=== PATIENT | female | born 1930 | race Caucasian/White ===

== ENCOUNTER → 2016-04-02 | Outpatient (CLI) | payer MEDICARE ==
[~2016-04-02] MED LIST: ACET65TA; ALBU17IN2 INH; ASPI1TAB PO; ATEN25TA; ATEN25TA PO; ATOR40TA PO; AZUL500T3; BABY81CH; CALC600T7 PO; EYECAP PO; FLAG500T; FURO20TA2 PO; HYDR200T3 PO; LABE10TAB PO; LASI40TA; LEVO125T6; LEVO150T42 PO; LISI10TA4; MAGN500T2; MILKSUS; NEXI40CA PO; NORV5TAB; NYSTATIN ORAL; POTA10TA16 PO; PRAM0.123 PO; PRED10PA PO; PRED10TA2; PRED20TA; PRED5TA PO; ROBISYP PO; SENN-23 PO; TRAZ50TA; TYLE325T5 PO; VITA100066 PO; VITMTA PO; ZITH500T PO
[2016-04-02 20:27] LABS: CREATININE FOR GFR 1.21 MG/DL (0.55-1.02); GLOMERULAR FILTRATION RATE 44.7 (>32)
== END ==
LOC: M WUC 15:45
PROVIDERS: ATTEND Otolaryngology
DX: R22.1 Localized swelling, mass and lump, neck (principal)

== ENCOUNTER → 2016-04-20 | Outpatient (CLI) | payer MEDICARE ==
--- NOTE | 2016-04-20 13:24 | REP ---
Clinical: Adhesive capsulitis. Technique: Internal rotation, external rotation, and Y view. Findings: There is mild chronic appearing acromioclavicular joint subluxation along with elevation of the humeral head and decrease subacromial space. The humeral head appears to have migrated superomedially causing remodelling of the underlying glenoid. No acute fracture identified. Impression: Arthritic degenerative changes as described above. Signed by Deep Gambino MD 04/20/2016 01:15 P
== END ==
LOC: M WUC 12:52
PROVIDERS: ATTEND Family Medicine
DX: M75.01 Adhesive capsulitis of right shoulder (principal)

== ENCOUNTER → 2016-05-04 | Outpatient (CLI) | payer MEDICARE ==
[2016-05-04 13:50] LABS: ALBUMIN 3.7 GM/DL (3.2-5.2); ALBUMIN/GLOBULIN RATIO 1.37 (1.00-1.93); ALKALINE PHOSPHATASE 75 U/L (45-117); ALT/SGPT 15 U/L (12-78); ANION GAP 12 MEQ/L (8-16); AST/SGOT 18 U/L (15-37); BILIRUBIN,TOTAL 0.4 MG/DL (0.2-1.0); BLOOD UREA NITROGEN 42 MG/DL (7-18); CALCIUM LEVEL 9.2 MG/DL (8.8-10.2); CARBON DIOXIDE LEVEL 28 MEQ/L (21-32); CHLORIDE LEVEL 102 MEQ/L (98-107); CREATININE FOR GFR 1.75 MG/DL (0.55-1.02); GLOMERULAR FILTRATION RATE 29.2 (>32); GLUCOSE, FASTING 148 MG/DL (83-110); POTASSIUM SERUM 4.2 MEQ/L (3.5-5.1); SODIUM LEVEL 142 MEQ/L (136-145); TOTAL PROTEIN 6.4 GM/DL (6.4-8.2)
[2016-05-04 13:54] LABS: MEAN CORPUSCULAR HEMOGLOBIN 31.5 pg (27.0-33.0); MEAN CORPUSCULAR HGB CONC 31.6 g/dl (32.0-36.5); MEAN CORPUSCULAR VOLUME 99.5 fl (80.0-96.0); RED CELL DISTRIBUTION WIDTH 14.8 % (11.5-14.5); WHITE BLOOD COUNT 6.4 K/mm3 (4.0-10.0)
[2016-05-04 13:58] LABS: BASOPHILS 2 % (0-4); EOSINOPHILS 3 % (0-5); POIKILOCYTOSIS 1+
[2016-05-04 14:00] LABS: MICROSCOPIC INDICATED? MAN YES (NO)
[2016-05-04 14:07] LABS: BACTERIA, URINE SMALL AMOUNT; SQUAMOUS EPITHELIAL CELL URINE SMALL AMOUNT /hpf (SMALL AMT); WBC, URINE 30-40 /hpf (0-3)
[2016-05-04 14:08] LABS: MICROSCOPIC EXAM PERFORMED
[2016-05-04 14:09] LABS: TRANSITIONAL EPI CELLS, URINE SMALL AMOUNT /hpf
[2016-05-04 16:31] LABS: VITAMIN B12 LEVEL 575 PG/ML (247-911)
[2016-05-05 11:06] LABS: PRETREATED FOLATE FOR RBCFOL > 24.0 NG/ML
[2016-05-06 00:06] LABS: FREE KAPPA LIGHT CHAINS SERUM 43.72 mg/L (3.30-19.40); FREE LAMBDA LIGHT CHAINS SERUM 38.51 mg/L (5.71-26.30); KAPPA/LAMBDA RATIO SERUM 1.14 (0.26-1.65)
[2016-05-07 13:07] LABS: ALBUMIN % 57.6 % (55.8-66.1); GAMMA GLOBULIN % 10.3 % (11.1-18.8)
[2016-05-07 13:08] LABS: ALBUMIN 3.69 GM/DL (3.29-5.55)
== END ==
LOC: M WUC 10:48
PROVIDERS: ATTEND Family Medicine
DX: I10 Essential (primary) hypertension (principal); M32.9 Systemic lupus erythematosus, unspecified; D47.2 Monoclonal gammopathy; E03.9 Hypothyroidism, unspecified; N18.3 Chronic kidney disease, stage 3 (moderate); M10.9 Gout, unspecified

== ENCOUNTER → 2016-05-11 | Outpatient (CLI) | payer MEDICARE ==
[2016-05-11 12:02] LABS: MEAN CORPUSCULAR HEMOGLOBIN 31.5 pg (27.0-33.0); MEAN CORPUSCULAR HGB CONC 32.2 g/dl (32.0-36.5); MEAN CORPUSCULAR VOLUME 97.9 fl (80.0-96.0); RED CELL DISTRIBUTION WIDTH 14.9 % (11.5-14.5); WHITE BLOOD COUNT 6.2 K/mm3 (4.0-10.0)
[2016-05-11 12:13] LABS: VITAMIN B12 LEVEL 520 PG/ML (247-911)
[2016-05-11 12:30] LABS: EOSINOPHILS 2 % (0-5)
[2016-05-11 12:37] LABS: ALBUMIN 3.6 GM/DL (3.2-5.2); ALBUMIN/GLOBULIN RATIO 1.13 (1.00-1.93); ALKALINE PHOSPHATASE 83 U/L (45-117); ALT/SGPT 15 U/L (12-78); ANION GAP 12 MEQ/L (8-16); AST/SGOT 19 U/L (15-37); BILIRUBIN,TOTAL 0.4 MG/DL (0.2-1.0); BLOOD UREA NITROGEN 34 MG/DL (7-18); CALCIUM LEVEL 9.6 MG/DL (8.8-10.2); CARBON DIOXIDE LEVEL 27 MEQ/L (21-32); CHLORIDE LEVEL 103 MEQ/L (98-107); CREATININE FOR GFR 1.37 MG/DL (0.55-1.02); FREE T4 1.37 NG/DL (0.76-1.46); GLOMERULAR FILTRATION RATE 38.7 (>32); GLUCOSE, FASTING 100 MG/DL (83-110); POTASSIUM SERUM 3.9 MEQ/L (3.5-5.1); SODIUM LEVEL 142 MEQ/L (136-145); TOTAL PROTEIN 6.8 GM/DL (6.4-8.2); URIC ACID 4.6 MG/DL (2.6-6.0)
[2016-05-12 11:36] LABS: PRETREATED FOLATE FOR RBCFOL > 24.0 NG/ML
[2016-05-13 07:37] LABS: ALBUMIN 3.89 GM/DL (3.29-5.55); ALBUMIN % 57.2 % (55.8-66.1); GAMMA GLOBULIN % 10.2 % (11.1-18.8)
[2016-05-14 00:09] LABS: FREE KAPPA LIGHT CHAINS SERUM 35.32 mg/L (3.30-19.40); FREE LAMBDA LIGHT CHAINS SERUM 36.61 mg/L (5.71-26.30); KAPPA/LAMBDA RATIO SERUM 0.96 (0.26-1.65)
== END ==
LOC: M WUC 09:44
PROVIDERS: ATTEND Family Medicine
DX: I10 Essential (primary) hypertension (principal); M32.9 Systemic lupus erythematosus, unspecified; D47.2 Monoclonal gammopathy

== ENCOUNTER → 2016-05-25 | Outpatient (CLI) | payer MEDICARE | LOC: M WUC 11:37 | PROVIDERS: ATTEND Physician Assistant Medical | DX: M81.0 Age-related osteoporosis without current pathological fracture (principal) ==

== ENCOUNTER → 2016-06-18 | Outpatient (REF) | payer MEDICARE ==
[2016-06-18 19:40] LABS: FREE T4 1.43 NG/DL (0.76-1.46)
== END ==
LOC: M LAB REF 16:30
PROVIDERS: ATTEND Internal Medicine Medical Oncology
DX: C64.1 Malignant neoplasm of right kidney, except renal pelvis (principal); E03.9 Hypothyroidism, unspecified

== ENCOUNTER → 2016-07-08 | Outpatient (REF) | payer MEDICARE | LOC: M LAB REF 16:45 | PROVIDERS: ATTEND Obstetrics & Gynecology | DX: R39.89 Other symptoms and signs involving the genitourinary system (principal) ==

== ENCOUNTER → 2016-07-21 | Outpatient (REF) | payer MEDICARE ==
[2016-07-21 19:08] LABS: FREE T4 1.41 NG/DL (0.76-1.46)
== END ==
LOC: M LAB REF 17:11
PROVIDERS: ATTEND Internal Medicine Medical Oncology
DX: C64.9 Malignant neoplasm of unspecified kidney, except renal pelvis (principal); Z79.899 Other long term (current) drug therapy

== ENCOUNTER 2016-08-16 10:13 | Inpatient (IN) | payer MEDICARE ==
[~2016-08-16] VITALS: Ht 167.6 cm; Wt 69.4 kg
[2016-08-16] MEDS ORDERED: LEVO750T33 PO (11:24)
[2016-08-16] MEDS ORDERED: ALBUTEROL SULFATE 2.5 MG/0.5 ML INH NEB SOLN INH ONE (11:30)
[2016-08-16] MEDS ORDERED: IPRATROPIUM 0.5MG/ALBUTEROL 2.5MG INH SOL UD 3ML (DUONEB)(J7620) NEB ONE (11:30)
[2016-08-16] MEDS ORDERED: NS 500 ML IV ONE (11:30)
[2016-08-16] MEDS ORDERED: methylPREDNISolone INJ 125 MG/2 ML VIAL (J2930) IV ONE (11:30)
--- NOTE | 2016-08-16 11:48 | REP ---
Portable chest: Single view. History: Dyspnea and cough. Comparison study: October 03, 2014. Findings: The patient is rotated somewhat to the right for the current exposure. EKG electrodes are seen. The lungs however are symmetrically aerated and clear. The heart is borderline unchanged. The aorta is somewhat tortuous as before. Pulmonary vasculature is not increased. There are advanced degenerative changes in the shoulders bilaterally. Some degenerative disc disease is seen in the thoracic spine. There are clips in the left upper quadrant of the abdomen. Impression: Mildly prominent heart. Otherwise no acute disease. Signed by Jemal Jarrett MD 08/16/2016 12:53 P
[2016-08-16 11:51] LABS: ABG BASE EXCESS 3.4 (-2.0-2.0); ABG HCO3 28.6 MEQ/L (22.0-26.0); ABG PARTIAL PRESSURE CO2 46.2 mmHg (35.0-45.0); ABG PARTIAL PRESSURE O2 114.8 mmHg (75.0-100.0); ABG STANDARD HCO3 27.5 MEQ/L (22.0-26.0)
[2016-08-16 12:11] LABS: EOS # 0.2 K/mm3 (0.0-0.50); EOS % 5.2 % (0.0-3.0); LARGE UNSTAINED CELL # 0.1 K/mm3 (0.0-0.4); LARGE UNSTAINED CELL % 1.8 % (0.0-4.0); LYMPH % 23.2 % (24.0-44.0); MEAN CORPUSCULAR HEMOGLOBIN 32.6 pg (27.0-33.0); MEAN CORPUSCULAR HGB CONC 32.7 g/dl (32.0-36.5); MEAN CORPUSCULAR VOLUME 99.4 fl (80.0-96.0); MONO # 0.3 K/mm3 (0.0-0.8); MONO % 6.8 % (0.0-5.0); NEUTROPHILS # 2.6 K/mm3 (1.8-7.7); NEUTROPHILS % 62.2 % (36.0-66.0); PLATELET COUNT, AUTOMATED 215 k/mm3 (150-450); RED CELL DISTRIBUTION WIDTH 17.6 % (11.5-14.5); WHITE BLOOD COUNT 4.1 K/mm3 (4.0-10.0)
[2016-08-16 12:33] LABS: INR 1.04
[2016-08-16 12:40] LABS: ALBUMIN 3.3 GM/DL (3.2-5.2); ALBUMIN/GLOBULIN RATIO 1.14 (1.00-1.93); ALKALINE PHOSPHATASE 233 U/L (45-117); ALT/SGPT 252 U/L (12-78); ANION GAP 9 MEQ/L (8-16); AST/SGOT 250 U/L (15-37); BILIRUBIN,DIRECT 0.3 MG/DL (0.0-0.2); BILIRUBIN,TOTAL 0.8 MG/DL (0.2-1.0); BLOOD UREA NITROGEN 27 MG/DL (7-18); CALCIUM LEVEL 9.3 MG/DL (8.8-10.2); CARBON DIOXIDE LEVEL 28 MEQ/L (21-32); CHLORIDE LEVEL 105 MEQ/L (98-107); CREATININE FOR GFR 1.24 MG/DL (0.55-1.02); GLOMERULAR FILTRATION RATE 43.5 (>32); GLUCOSE, FASTING 89 MG/DL (83-110); POTASSIUM SERUM 3.8 MEQ/L (3.5-5.1); SODIUM LEVEL 142 MEQ/L (136-145); THYROXINE (T4) 13.1 UG/DL (4.5-12.0); TOTAL PROTEIN 6.2 GM/DL (6.4-8.2)
[2016-08-16] MEDS ORDERED: ISOVUE-370 76% 100ML VIAL (Q9967) As Ordered ONE (13:31)
--- NOTE | 2016-08-16 14:55 | REP ---
CT pulmonary angiogram: With IV contrast. History: Shortness of breath. Comparison studies: March 16, 2016. Contrast dose: 75 cc's of Isovue [address] technique: Helical scanning is acquired and overlapping 1.5 mm and contiguous 3 mm axial images are reformatted. In addition, a 3-D work station is deployed to generate thick slab maximum intensity projection images in sagittal and coronal imaging projections. CT pulmonary angiographic findings: There is good opacification of the pulmonary arterial tree. There is no CT evidence of pulmonary embolism. The thoracic aorta enhances homogeneously without evidence of aneurysm or dissection. There is some aortic tortuosity. No pleural or pericardial effusion is seen. Cardiomegaly is observed. Maximum intensity projection images show no evidence of vessel cutoff or filling defect in the pulmonary arterial tree to suggest an embolus. Thoracic kyphosis is somewhat exaggerated with degenerative disc changes. No bony destructive lesion is appreciated. There are several healed or healing rib fractures noted on the left. 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 No other bony destructive lesion is seen. The lung window settings show minimal subpleural fibrotic changes in the lower lobes bilaterally. No infiltrate, nodule or mass lesion is seen. No hilar or mediastinal mass or adenopathy is observed. The previously noted left lobe liver mass lesion is again seen although this appears decreased in size. Previously this measured up to 7-1/2 cm in August 2015. Currently it measures 4.6 cm in greatest diameter. There is a soft tissue mass in the left nephrectomy bed as previously noted. This appears to be essentially stable although it is incompletely seen. No other mass lesion is visible. Impression: 1. No CT evidence of pulmonary embolus. 2. Healed or healing rib fractures noted on the left. 3. Partially visualized soft tissue mass in the left nephrectomy bed appears to be stable from prior CT. 4. Low density mass lesion in the left lobe of the liver appears smaller. Signed by Jemal Jarrett MD 08/16/2016 03:14 P
[2016-08-16] MEDS ORDERED: ALBU17IN INH (16:03)
[2016-08-16] MEDS ORDERED: PRED10TA PO (16:12)
[2016-08-16] MEDS ORDERED: PRESCAP6 PO (16:12)
[2016-08-16] MEDS ORDERED: FURO20TA2 PO (16:12)
[2016-08-16] MEDS ORDERED: PRAM0.252 PO (16:12)
[2016-08-16] MEDS ORDERED: VOTRIENT PO (16:17)
[2016-08-16] MEDS ORDERED: ESTR62CR PV (16:17)
[2016-08-16] MEDS ORDERED: PRED1TABL PO (16:17)
[2016-08-16] MEDS ORDERED: MYRB25TA PO (16:23)
[2016-08-16] MEDS ORDERED: MUCI600T34 PO (16:23)
[2016-08-16] MEDS ORDERED: ALLO100T PO (16:23)
[2016-08-16] MEDS ORDERED: MIRT15TA3 PO (16:23)
[2016-08-16] MEDS ORDERED: OMEP20CA3 PO (16:23)
[2016-08-16] MEDS ORDERED: ALBUTEROL 90 MCG/ACT 8GM HFA INHALER INH PRN (18:00)
[2016-08-16] MEDS ORDERED: ACETAMINOPHEN TAB 650MG DOSE (2X325MG) PO PRN (18:00)
[2016-08-16 21:18] VITALS: BP 145/71
[2016-08-16] MEDS: ENOXAPARIN 40 MG/0.4 ML SYRINGE (J1650) SC SCH (22:20)
[2016-08-16] MEDS: SENOKOT S TAB PO SCH (22:21)
[2016-08-16] MEDS: MIRTAZAPINE 15 MG TAB PO SCH (22:21)
[2016-08-16] MEDS: guaiFENesin ER 600 MG TAB PO SCH (22:21)
[2016-08-16] MEDS: ASPIRIN 81 MG ENTERIC TAB PO SCH (22:21)
[2016-08-16] MEDS: POTASSIUM CHLORIDE 10 MEQ SR TABLET PO SCH (22:22)
[2016-08-16] MEDS: FUROSEMIDE 20 MG TAB PO SCH (22:22)
[2016-08-16] MEDS: PRAMIPEXOLE 0.25 MG TAB PO SCH (22:57)
[2016-08-16] MEDS: LABETALOL 100 MG TAB PO SCH (22:57)
[2016-08-17 06:00] VITALS: BP 131/65
[2016-08-17 06:02] LABS: BASO % 0.1 % (0.0-1.0); EOS % 0.3 % (0.0-3.0); LARGE UNSTAINED CELL % 0.6 % (0.0-4.0); LYMPH # 0.3 K/mm3 (1.5-4.5); LYMPH % 8.4 % (24.0-44.0); MEAN CORPUSCULAR HEMOGLOBIN 32.9 pg (27.0-33.0); MEAN CORPUSCULAR HGB CONC 32.7 g/dl (32.0-36.5); MEAN CORPUSCULAR VOLUME 100.7 fl (80.0-96.0); MONO # 0.2 K/mm3 (0.0-0.8); NEUTROPHILS # 3.2 K/mm3 (1.8-7.7); NEUTROPHILS % 84.7 % (36.0-66.0); PLATELET COUNT, AUTOMATED 217 k/mm3 (150-450); RED CELL DISTRIBUTION WIDTH 17.8 % (11.5-14.5); WHITE BLOOD COUNT 3.7 K/mm3 (4.0-10.0)
[2016-08-17] MEDS: LEVOTHYROXINE 150MCG TABLET (0.15MG) PO SCH (06:20)
[2016-08-17 06:37] LABS: CALCIUM LEVEL 9.2 MG/DL (8.8-10.2); CREATININE FOR GFR 1.06 MG/DL (0.55-1.02); GLOMERULAR FILTRATION RATE 52.1 (>32); POTASSIUM SERUM 4.2 MEQ/L (3.5-5.1)
--- NOTE | 2016-08-17 07:46 | HPE ---
DATE OF ADMISSION: 08/16/2016 CHIEF COMPLAINT: Shortness of breath. HISTORY OF PRESENT ILLNESS: This is a an 86-year-old woman who comes to [facility] ER today because of shortness of breath. This has been progressive over the last week or more. She was seen at urgent care four days ago and started on some Levaquin. She had a chest x-ray done and was told she had some pneumonia. She does have a mild cough, but really is more bothered by shortness of breath on exertion, extreme fatigue and a sense that she does not have the strength to stay standing when she is standing or walking. Her last evaluation in [facility] was three months ago and she really did not have any of these symptoms. However, subsequently on follow up with her oncologist, she was felt to have enlarging renal and masses and cervical nodes and was started on chemotherapy with a medication called Votrient. Unfortunately, I am not finding anything in her [facility] records that are available to us documenting this or treatment decisions involved in putting her on chemotherapy. The patient denies fevers, chills, sweats, has had some weight loss, her appetite is down. Denies any back pain or abdominal pain. She says she is raising some clear phlegm, but this is not really a new problem, this is somewhat chronic. She is not having any pains in her chest at all. PAST HISTORY: The patient had a left nephrectomy 23 years ago. She has had some sort of mass in the right kidney for a number of years, unclear whether this has actually been biopsied, but it had been stable. She has had a hysterectomy, tonsillectomy, appendectomy, thyroidectomy for goiter. She had carpal tunnel surgery just five months ago. She has been treated for chronic diastolic heart failure for the last days 7-1/2 years. She is also said to have lupus and chronically takes hydroxychloroquine and prednisone for this. She is treated for hypertension and allergic rhinitis. Hypothyroidism. Has some chronic constipation. Monoclonal gammopathy of uncertain significance. CURRENT MEDICATIONS: Her current medication regimen includes: - Votrient which appears to be dosed at 600 mg - She is on furosemide 40 mg in the morning and 20 mg in the evening - potassium chloride 10 mEq daily - hydroxychloroquine 200 mg daily - levothyroxine 150 mcg daily - labetalol 200 mg twice a day - aspirin 81 mg daily - multivitamin daily - calcium with vitamin D one a day - vitamin D 1000 units daily - docusate with senna one tablet twice a day - Since four days ago she has been on levofloxacin 750 mg daily as well as an albuterol inhaler two puffs every 4 hours p.r.n. - Several months ago she was restarted on pramipexole 0.25 mg daily at bedtime. - She is on PreserVision one capsule daily - prednisone a total of 8 mg daily. - She has conjugated estrogen cream. - omeprazole 20 mg daily - guaifenesin 600 mg twice a day - allopurinol 100 mg daily - Myrbetriq 25 mg at bedtime - mirtazapine 15 mg daily ALLERGIES: SEPTRA and CODEINE which have given her nausea and vomiting. FAMILY HISTORY: Her parents are . Her father had cancer. She has siblings who are alive. A daughter has a pacemaker. SOCIAL HISTORY: She lives in [place]. Her community physician is Dr. Brian Millan. She is nonsmoker and nondrinker. She is also seeing as consultants, Dr. Leigh Covarrubias for oncology, Dr. Turcios for urology, Dr. Nash for [facility]. REVIEW OF SYSTEMS: She denies fevers, chills or sweats. She has lost some weight. Appetite is not good. She feels lightheaded when she stands, has some mild cough, short of breath with any exertion. Denies chest pains or palpitations. Denies nausea, vomiting, abdominal pain. She tends to run between diarrhea and constipation. No blood in the stool. She does have a history of having had a vaginal discharge for which she was placed on estrogen creams recently. Denies any dysuria or hematuria. Denies any back discomfort. Denies any leg discomforts. She is not having any edema. No actual syncope. No convulsions. No history of stroke or TIA. Not having any issues with anxiety or depression. PHYSICAL EXAMINATION: On examination this is an elderly pleasant white female who does not appear in any distress at this time. She is alert, oriented, pleasant and cooperative. Her pulse is 84 and regular. Blood pressure 155/82. O2 saturation is 92-97% on 2 liters nasal oxygen. She is normocephalic. Extraocular movements are full. Pupils equal, round, regular, react to light accommodation. Facial weakness. Mouth and throat is unremarkable. Tongue is midline. Speech is clear. On the left submandibular area, there is a regular firm but not fixed area. No carotid bruits. No neck masses. No jugular venous distension or hepatojugular reflux. Lungs show the presence of what sounds like fibrotic sounding coarse rales in the lower lung whalen, more so on the left. Heart has regular rhythm without any murmur, click or gallop. Abdomen is soft, nontender, without any masses or organomegaly. Bowel sounds are active. She has a nephrectomy scar evident on the left side. She also has a thyroidectomy scar recognized at the base of her neck. There is no edema. No calf tenderness. No cyanosis or clubbing. She has excellent pedal pulses. Back is nontender. Cranial nerves III-XII within normal limits. Paralegal Supervisor are symmetric. Deep tendon reflexes are diminished. Babinski signs are negative bilaterally. Sensation seems grossly normal. She is oriented to time, place and person. She has some chronic discoloration of her legs below the knees. Labs done in the emergency department today showed a BUN of 27, creatinine 1.24, potassium 3.8, glucose 89. Liver functions are abnormal with an AST is 250, ALT of 252 and alkaline phosphatase of 233. Albumin is normal at 3.3. Troponin is normal at less than 0.02. BNP is 35.5. TSH today is 1.88, although thyroxin is slightly elevated at 13.1. Chest x-ray reported as showing some cardiomegaly. Otherwise no acute disease, certainly no masses or infiltrate. Angiography was done that showed no pulmonary embolism. Healed or healing rib fractures on the left. Partially visualized soft tissue mass in the left nephrectomy bed appearing stable. Low density mass in the left lobe of the liver appearing smaller. ASSESSMENT: 86-year-old woman with dyspnea said to have been hypoxic, is short of breath on exertion. She feels weak and unable to function with any level of exertion. She is on chemotherapy for what sounds like metastatic renal cancer, which seems to be not quite well documented in studies available to me. The patient has a history of congestive heart failure, but she has been on chronic therapy and her BNP at this time is normal. She certainly does not have a pneumonia. PLAN: My gut feeling is that the patient's chemotherapy is probably the culprit for her fatigue, dyspnea and liver function abnormalities. Will discontinue her antibiotics at this time, have her on oxygen, have run p.r.n. nebulizers, have her on most of her normal medications. She did get a dose of IV steroids in the emergency department. We will be monitoring her labs, keeping her off of her chemotherapy medication, reassessing her liver function abnormalities, getting her a dedicated abdominopelvic CT. She has a DNR mentioned, but not documented at this time, did not bring her MOLST form in. She looks quite comfortable given her current diagnostic status.
[2016-08-17 09:23] LABS: ALBUMIN 3.2 GM/DL (3.2-5.2); ALBUMIN/GLOBULIN RATIO 1.03 (1.00-1.93); BILIRUBIN,DIRECT 0.2 MG/DL (0.0-0.2); BILIRUBIN,TOTAL 0.6 MG/DL (0.2-1.0); TOTAL PROTEIN 6.3 GM/DL (6.4-8.2)
[2016-08-17] MEDS: VITAMIN D 1,000 INTERNATIONAL UNITS TABLET PO SCH (09:25)
[2016-08-17] MEDS: CALCIUM/VITAMIN D 500 MG TAB PO SCH (09:25)
[2016-08-17] MEDS: OMEPRAZOLE 20 MG CAP PO SCH (09:25)
[2016-08-17] MEDS: HYDROXYCHLOROQUINE 200 MG TAB PO SCH (09:25)
[2016-08-17] MEDS: predniSONE 5 MG TAB PO SCH (09:25)
[2016-08-17] MEDS: ALLOPURINOL 100 MG TAB PO SCH (09:25)
[2016-08-17] MEDS: SENOKOT S TAB PO SCH ×2 (09:25→20:34)
[2016-08-17] MEDS: FUROSEMIDE 40 MG TAB PO SCH (09:26)
--- NOTE | 2016-08-17 09:26 | IPNPDOC ---
Subjective Date Seen The patient was seen on 08/17/16. Subjective Chief Complaint/HPI The patient is a 86-year-old female admitted with a reason for visit of Elevated Lft's;Hypoxia;Weakness. Events since last encounter Pt this morning is feeling better. Breathing is better today. She cont to feel extremely tired. General: Reports: Fatigue, Malaise, Normal Appetite Constitutional: Denies: Chills, Fever Pulmonary: Reports: Dyspnea, Denies: Cough Cardiovascular: Denies: Chest Pain, Palpitations Gastrointestinal: Denies: Nausea, Vomiting, Diarrhea Neurological: Reports: Weakness Psych: Reports: Mood Normal Objective Physical Examination General Exam: Positive: Alert, No Acute Distress ENT Exam: Positive: Mucous membr. moist/pink Neck Exam: Positive: Supple Chest Exam: Positive: Clear to auscultation, Normal air movement Heart Exam: Positive: Rate Normal, Normal S1, Normal S2 Abdomen Exam: Positive: Normal bowel sounds, Soft, Negative: Tenderness Extremity Exam: Negative: Edema Psych Exam: Positive: Mood NL Assessment /Plan Problems (1) Renal carcinoma Status: Chronic Response to Treatment: Stable Discussed With: Patient Problem Specific Plan: Monitor Clinically Problem Text: beginning of 05/2016 started pazopanib [address] Kimberly henry increased fatigue, dose reduced to 600 qAM 3W prior s improved fatigue (2) Dyspnea on exertion Status: Acute Response to Treatment: Stable Discussed With: Patient Problem Specific Plan: Monitor Clinically Problem Text: The pt reports difficulty tolerating any exertion d/t increased SOB, imaging of her chest does not support Pneumonia. Her sats are in the mids 90s, she is on O2 at 1 LPM at this time, which she doesn't usually have. 08/17 check TTE She also lives home alone, which is concerning. 08/16/16 CTA - PE (3) Malaise and fatigue Status: Acute Response to Treatment: Stable Discussed With: Patient Problem Specific Plan: Monitor Clinically Problem Text: favor 2 acute hepatitis/deconditioning/tumor burden 08/16 BCX NG (4) Elevated liver function tests Status: Acute Problem Specific Plan: Monitor Clinically Problem Text: 08/17/16 favor peaking at 294/309/243 2 pazopanib (last dose 600 AM) ( kinase inhibitor 2 metastatic RCC)-most common serious side effect Her LFTs are acutely elevated, although she has known metastatic lesions to her liver. INR remains nl at 1. Liver US pending today. CT suggests her liver lesion is smaller than previous. (5) CKD (chronic kidney disease) stage 3, GFR 30-59 ml/min Status: Chronic Response to Treatment: Stable Problem Text: baseline cr 1.2 Plan/VTE VTE Prophylaxis Ordered?: Yes Disposition plan home c improved fatigue/hepatitis/ cleared by PT VS, I&O, 24H, Fishbone Vital Signs/I&O Vital Signs Date Time Temp Pulse Resp B/P (MAP) Pulse Ox O2 Delivery O2 Flow Rate FiO2 08/17/16 06:00 96.7 73 18 131/65 (87) 94 Nasal Cannula 1.0 I&O- Last 24 Hours up to 6 AM 08/17/16 06:00 Intake Total 750 ml Output Total 400 ml Balance 350 ml Laboratory Data 24H LABS Laboratory Tests 2 08/16/16 11:39: Blood Gas Bicarbonate Standard 27.5H, Arterial Blood pH 7.410, Arterial Blood Partial Pressure CO2 46.2H, Arterial Blood Partial Pressure O2 114.8H, Arterial Blood Total CO2 30.0, Arterial Blood HCO3 28.6H, Arterial Blood Base Excess 3.4H , Arterial Blood Oxygen Saturation 98.1 08/16/16 11:51: White Blood Count 4.1, Red Blood Count 3.78L, Hemoglobin 12.3, Hematocrit 37.6, Mean Corpuscular Volume 99.4H, Mean Corpuscular Hemoglobin 32.6, Mean Corpuscular Hemoglobin Concent 32.7, Red Cell Distribution Width 17.6H, Platelet Count 215, Neutrophils (%) (Auto) 62.2, Lymphocytes (%) (Auto) 23.2L, Monocytes (%) (Auto) 6.8H, Eosinophils (%) (Auto) 5.2H, Basophils (%) (Auto) 1.0 , Neutrophils # (Auto) 2.6, Lymphocytes # (Auto) 1.0L, Monocytes # (Auto) 0.3, Eosinophils # (Auto) 0.2, Basophils # (Auto) 0.0, Large Unclassified Cells % 1.8 , Large Unclassified Cells # 0.1, Prothrombin Time 13.7, Prothromb Time International Ratio 1.04, Anion Gap 9, Glomerular Filtration Rate 43.5, Lactic Acid Level 1.5, Calcium Level 9.3, Aspartate Amino Transf (AST/SGOT) 250H, Alanine Aminotransferase (ALT/SGPT) 252H, Alkaline Phosphatase 233H, Total Bilirubin 0.8, Direct Bilirubin 0.3H, Total Creatine Kinase 38, Creatine Kinase MB 1.0, Creatine Kinase MB Relative Index 2.63, Troponin I < 0.02, B-Type Natriuretic Peptide 35.5, Total Protein 6.2L, Albumin 3.3, Albumin/Globulin Ratio 1.14, Thyroid Stimulating Hormone (TSH) 1.880, Thyroxine (T4) 13.1H 08/17/16 05:42: White Blood Count 3.7L, Red Blood Count 3.75L, Hemoglobin 12.3, Hematocrit 37.8 , Mean Corpuscular Volume 100.7H, Mean Corpuscular Hemoglobin 32.9, Mean Corpuscular Hemoglobin Concent 32.7, Red Cell Distribution Width 17.8H, Platelet Count 217, Neutrophils (%) (Auto) 84.7H, Lymphocytes (%) (Auto) 8.4L, Monocytes (%) (Auto) 6.0H, Eosinophils (%) (Auto) 0.3, Basophils (%) (Auto) 0.1 , Neutrophils # (Auto) 3.2, Lymphocytes # (Auto) 0.3L, Monocytes # (Auto) 0.2, Eosinophils # (Auto) 0.0, Basophils # (Auto) 0.0, Large Unclassified Cells % 0.6 , Large Unclassified Cells # 0.0, Anion Gap 8, Glomerular Filtration Rate 52.1, Calcium Level 9.2, Blood Urea Nitrogen 28H, Creatinine 1.06H, Sodium Level 142, Potassium Level 4.2, Chloride Level 107, Carbon Dioxide Level 27 CBC/BMP Laboratory Tests 08/16/16 11:51 Red Blood Count 3.78 L, Mean Corpuscular Volume 99.4 H, Mean Corpuscular Hemoglobin 32.6, Mean Corpuscular Hemoglobin Concent 32.7, Red Cell Distribution Width 17.6 H, Neutrophils (%) (Auto) 62.2, Lymphocytes (%) (Auto) 23.2 L, Monocytes (%) (Auto) 6.8 H, Eosinophils (%) (Auto) 5.2 H, Basophils (%) (Auto) 1.0, Neutrophils # (Auto) 2.6, Lymphocytes # (Auto) 1.0 L, Monocytes # ( Auto) 0.3, Eosinophils # (Auto) 0.2, Basophils # (Auto) 0.0 08/17/16 05:42 Red Blood Count 3.75 L, Mean Corpuscular Volume 100.7 H, Mean Corpuscular Hemoglobin 32.9, Mean Corpuscular Hemoglobin Concent 32.7, Red Cell Distribution Width 17.8 H, Neutrophils (%) (Auto) 84.7 H, Lymphocytes (%) (Auto ) 8.4 L, Monocytes (%) (Auto) 6.0 H, Eosinophils (%) (Auto) 0.3, Basophils (%) ( Auto) 0.1, Neutrophils # (Auto) 3.2, Lymphocytes # (Auto) 0.3 L, Monocytes # ( Auto) 0.2, Eosinophils # (Auto) 0.0, Basophils # (Auto) 0.0, Calcium Level 9.2 Microbiology Microbiology 08/16/16 Blood Culture, Received Pending 08/16/16 Blood Culture, Received Pending 08/16/16 Influenza Virus Type A Antigen - Final, Complete 08/16/16 Influenza Virus Type B Antigen - Final, Complete MARIANNA RAMIREZ PA-C Aug 17, 2016 09:26 Brian Millan M.D. Aug 17, 2016 15:22
[2016-08-17] MEDS: guaiFENesin ER 600 MG TAB PO SCH ×2 (09:27→20:34)
[2016-08-17] MEDS: POTASSIUM CHLORIDE 10 MEQ SR TABLET PO SCH (09:27)
[2016-08-17] MEDS: predniSONE 1 MG TAB PO SCH (09:46)
[2016-08-17] MEDS: LABETALOL 100 MG TAB PO SCH ×2 (09:47→20:35)
[2016-08-17 14:00] VITALS: BP 143/65
[2016-08-17] MEDS ORDERED: ISOVUE-370 76% 100ML VIAL (Q9967) As Ordered ONE (14:33)
--- NOTE | 2016-08-17 15:47 | REP ---
HISTORY: Renal and hepatic masses. Prior left nephrectomy. COMPARISON: 03/16/2016, a noncontrast-enhanced exam. There are chronic lung base changes, status quo. The noncontrast-enhanced portion of the examination shows a large 4.6 cm sized low density mass in the lateral segment of the left lobe of the liver. Surgical clips in the left renal fossa from previous left nephrectomy. There are no right sided nephroliths. Contrast-enhanced portion of the examination shows a mixed and predominantly peripherally enhancing mass in the left lobe of the liver which measures 4.9 x 3.7 x 5.8 cm. There are no other enhancing hepatic lesions. The spleen is within normal limits. There is a large mixed enhancing mass arising from the pancreatic tail measuring approximately 3.9 x 2.5 x 4.1 cm. [place] artifact from surgical clips in the postoperative left retroperitoneal bed obscures additional imaging of the region and I cannot say with certainty that the mass is either larger or there are additional masses in that region. In the pancreatic neck there is a peripheral enhancing 1.2 cm sized mass lesion. Near the pancreatic head there is an additional 1.6 cm sized mixed enhancing lesion. There are no enhancing gallbladder abnormalities. There are no enhancing adrenal gland lesions. In the interpolar region of the right kidney, there is an enhancing 2.3 cm sized mass density which is essentially unchanged from a contrast enhanced CT of 04/02/2011, which is the latest contrast enhanced study to review. The abdominal aorta is unchanged, remaining within normal limits. There is no periaortic adenopathy. There is no free fluid or free air in the abdomen. The bowel loops and their mesenteries are within normal limits. CT PELVIS: There is extensive sigmoid colon diverticulosis, status quo. There is no free fluid or free air. Bone window technique throughout the exam shows chronic osseous changes, status quo. IMPRESSION: 1. Hepatic lesion, as described above, suspicious for either primary or metastatic disease. 2. Multiple pancreatic lesions as described above suspicious for carcinoma. 3. Right renal mass as described above, etiology uncertain. Neoplasm is suspected. 4. Marked sigmoid colon diverticulosis and other findings as described above. Signed by Mamadou Campo DO 08/17/2016 03:59 P
--- NOTE | 2016-08-17 16:19 | REP ---
Head ultrasound: 08/17/2016. Comparison CT abdomen pelvis done this same date. Clinical history states hepatitis prior CT and March 2016 notes renal cell carcinoma of the 7 cm lesion left lobe of the liver. Today's study shows the liver with a 5.4 x 4.8 x 3.7 cm heterogeneous mass in the left lobe S S some color flow within it. Similar size lesion on the CT today. I do not see other definite liver lesions. Gallbladder shows wall thickness of 2.2 mm. It has no stone, mass, wall thickening or pericholecystic fluid. Common duct is through 0.0 mm without a common duct stone. There was no sonographic Huber's sign. Pancreas shows a hypoechoic nodule with the age of the head of the pancreas 1.5 ml. I 2.2 cm to correspond to the rim enhancing nodule on CT which has about 1.6 cm in maximum diameter. The visible pancreatic duct intact. The right kidney 11.4 x 6.6 x 3.9 cm in the interpolar region is to occulta slightly hyperechoic sinus mass 2.6 x 2.5 x 1.7 cm. This is grossly unchanged. Impression: 1. 4.8 x 5.4 x 3.7 cm solid mass left lobe of the liver with heterogeneous appearance of blood flow within it also a 1.5 x 1.2 cm hypoechoic mass in the pancreatic head and a slightly hyperechoic to isoechoic mass, midline interpolar region of the right kidney 2.7 by 2 x 6 x 2.5 cm. All this is grossly unchanged. Next no definite renal stone, ascites or other significant finding. Signed by Yusef Sánchez MD 08/17/2016 04:10 P
[2016-08-17] MEDS: FUROSEMIDE 20 MG TAB PO SCH (17:25)
[2016-08-17] MEDS: ENOXAPARIN 40 MG/0.4 ML SYRINGE (J1650) SC SCH (20:33)
[2016-08-17] MEDS: MIRTAZAPINE 15 MG TAB PO SCH (20:34)
[2016-08-17] MEDS: PRAMIPEXOLE 0.25 MG TAB PO SCH (20:34)
[2016-08-17] MEDS: ASPIRIN 81 MG ENTERIC TAB PO SCH (20:34)
[2016-08-17 22:00] VITALS: BP 170/73
[2016-08-18] MEDS: LEVOTHYROXINE 150MCG TABLET (0.15MG) PO SCH (05:47)
[2016-08-18 05:49] LABS: BASO % 0.7 % (0.0-1.0); EOS # 0.2 K/mm3 (0.0-0.50); EOS % 3.8 % (0.0-3.0); LARGE UNSTAINED CELL # 0.1 K/mm3 (0.0-0.4); LARGE UNSTAINED CELL % 1.4 % (0.0-4.0); LYMPH # 1.3 K/mm3 (1.5-4.5); LYMPH % 23.7 % (24.0-44.0); MEAN CORPUSCULAR HEMOGLOBIN 32.7 pg (27.0-33.0); MEAN CORPUSCULAR HGB CONC 32.2 g/dl (32.0-36.5); MEAN CORPUSCULAR VOLUME 101.5 fl (80.0-96.0); MONO # 0.3 K/mm3 (0.0-0.8); MONO % 5.6 % (0.0-5.0); NEUTROPHILS # 3.3 K/mm3 (1.8-7.7); NEUTROPHILS % 64.8 % (36.0-66.0); PLATELET COUNT, AUTOMATED 211 k/mm3 (150-450); RED CELL DISTRIBUTION WIDTH 18.1 % (11.5-14.5); WHITE BLOOD COUNT 5.1 K/mm3 (4.0-10.0)
[2016-08-18 06:00] VITALS: BP 135/64
[2016-08-18 06:09] LABS: ALBUMIN 3.1 GM/DL (3.2-5.2); ALBUMIN/GLOBULIN RATIO 0.97 (1.00-1.93); BILIRUBIN,DIRECT 0.2 MG/DL (0.0-0.2); BILIRUBIN,TOTAL 0.5 MG/DL (0.2-1.0); CALCIUM LEVEL 8.6 MG/DL (8.8-10.2); CREATININE FOR GFR 1.1 MG/DL (0.55-1.02); GLOMERULAR FILTRATION RATE 49.9 (>32); POTASSIUM SERUM 3.6 MEQ/L (3.5-5.1); TOTAL PROTEIN 6.3 GM/DL (6.4-8.2)
--- NOTE | 2016-08-18 08:51 | ECGEPIP ---
Stationary ECG Study [facility] - ED Test Date: 2016-08-16 Pat Name: MENDOZA OVIEDO Department: Room: - Gender: F Tilesetter: JT : 1930 Requested By: Freda Lim Order Number: [id number] Reading MD: Martha Guajardo Measurements Intervals [place] Rate: 84 P: -32 VT: 159 QRS: -15 QRSD: 105 T: 28 QT: 372 QTc: 442 Interpretive Statements SINUS RHYTHM PRWP DECREASED RATE 06/20/14 Electronically Signed On 08-18-2016 8:50:40 EDT by Martha Guajardo
[2016-08-18] MEDS: LABETALOL 100 MG TAB PO SCH ×2 (10:04→21:13)
[2016-08-18] MEDS: predniSONE 5 MG TAB PO SCH (10:04)
[2016-08-18] MEDS: predniSONE 1 MG TAB PO SCH (10:04)
[2016-08-18] MEDS: POTASSIUM CHLORIDE 10 MEQ SR TABLET PO SCH (10:05)
[2016-08-18] MEDS: ALLOPURINOL 100 MG TAB PO SCH (10:05)
[2016-08-18] MEDS: HYDROXYCHLOROQUINE 200 MG TAB PO SCH (10:05)
[2016-08-18] MEDS: SENOKOT S TAB PO SCH ×2 (10:05→21:12)
[2016-08-18] MEDS: guaiFENesin ER 600 MG TAB PO SCH ×2 (10:05→21:12)
[2016-08-18] MEDS: FUROSEMIDE 40 MG TAB PO SCH (10:05)
[2016-08-18] MEDS: OMEPRAZOLE 20 MG CAP PO SCH (10:06)
[2016-08-18] MEDS: VITAMIN D 1,000 INTERNATIONAL UNITS TABLET PO SCH (10:06)
[2016-08-18] MEDS: CALCIUM/VITAMIN D 500 MG TAB PO SCH (10:06)
--- NOTE | 2016-08-18 11:10 | IPNPDOC ---
Subjective Date Seen The patient was seen on 08/18/16. Subjective Chief Complaint/HPI The patient is a 86-year-old female admitted with a reason for visit of Elevated Lft's;Hypoxia;Weakness. Events since last encounter Feels much better. Energy levels have improved Constitutional: Denies: Chills, Fever Pulmonary: Denies: Dyspnea, Cough Cardiovascular: Denies: Chest Pain, Palpitations, Orthopnea Gastrointestinal: Denies: Nausea, Vomiting Genitourinary: Denies: Dysuria Objective Physical Examination General Exam: Positive: Alert, No Acute Distress ENT Exam: Positive: Mucous membr. moist/pink Neck Exam: Positive: Supple Chest Exam: Positive: Clear to auscultation, Normal air movement Heart Exam: Positive: Rate Normal, Normal S1, Normal S2 Abdomen Exam: Positive: Normal bowel sounds, Soft, Negative: Tenderness Extremity Exam: Negative: Edema Psych Exam: Positive: Mood NL Assessment /Plan Problems (1) Renal carcinoma Status: Chronic Response to Treatment: Stable Discussed With: Patient Problem Specific Plan: Monitor Clinically Problem Text: 08/18 - Patient does not want to continue chemoa due to side effects of severe fatigue. She will discuss this further with her oncologist. beginning of 05/2016 started pazopanib [address] Kimberly henry increased fatigue , dose reduced to 600 qAM 3W prior s improved fatigue (2) Dyspnea on exertion Status: Acute Response to Treatment: Stable Discussed With: Patient Problem Specific Plan: Monitor Clinically Problem Text: 08/18 - no further ATKINS. O2 sats 97% RA CTA negative for PE. (3) Malaise and fatigue Status: Acute Response to Treatment: Stable Discussed With: Patient Problem Specific Plan: Monitor Clinically Problem Text: favor 2 acute hepatitis/deconditioning/tumor burden 08/16 BCX NG (4) Elevated liver function tests Status: Acute Problem Specific Plan: Monitor Clinically Problem Text: JFW: 08/18: PC Dr Covarrubias, case discussed, aware of ADR to Votrient 08/17/16 favor peaking at 294/309/243 2 pazopanib (last dose 600 08/16 AM) ( kinase inhibitor 2 metastatic RCC)-most common serious side effect Her LFTs are acutely elevated, although she has known metastatic lesions to her liver. INR remains nl at 1. Liver US pending today. CT suggests her liver lesion is smaller than previous. (5) CKD (chronic kidney disease) stage 3, GFR 30-59 ml/min Status: Chronic Response to Treatment: Stable Problem Text: baseline cr 1.2 Plan/VTE VTE Prophylaxis Ordered?: Yes Disposition Per PT - will need PT for a few days prior to discharge home. Lives alone VS, I&O, 24H, Fishbone Vital Signs/I&O Vital Signs Date Time Temp Pulse Resp B/P (MAP) Pulse Ox O2 Delivery O2 Flow Rate FiO2 08/18/16 10:04 77 142/68 08/18/16 06:00 96.9 16 97 Room Air 08/17/16 06:00 1.0 I&O- Last 24 Hours up to 6 AM 08/18/16 06:00 Intake Total 1470 ml Output Total 1075 ml Balance 395 ml Laboratory Data 24H LABS Laboratory Tests 2 08/18/16 05:27: White Blood Count 5.1, Red Blood Count 3.61L, Hemoglobin 11.8L, Hematocrit 36.6 , Mean Corpuscular Volume 101.5H, Mean Corpuscular Hemoglobin 32.7, Mean Corpuscular Hemoglobin Concent 32.2, Red Cell Distribution Width 18.1H, Platelet Count 211, Neutrophils (%) (Auto) 64.8, Lymphocytes (%) (Auto) 23.7L, Monocytes (%) (Auto) 5.6H, Eosinophils (%) (Auto) 3.8H, Basophils (%) (Auto) 0.7 , Neutrophils # (Auto) 3.3, Lymphocytes # (Auto) 1.3L, Monocytes # (Auto) 0.3, Eosinophils # (Auto) 0.2, Basophils # (Auto) 0.0, Large Unclassified Cells % 1.4 , Large Unclassified Cells # 0.1, Anion Gap 8, Glomerular Filtration Rate 49.9, Calcium Level 8.6L, Aspartate Amino Transf (AST/SGOT) 192H, Alanine Aminotransferase (ALT/SGPT) 267H, Alkaline Phosphatase 222H, Total Bilirubin 0.5 , Direct Bilirubin 0.2, Total Protein 6.3L, Albumin 3.1L, Albumin/Globulin Ratio 0.97L CBC/BMP Laboratory Tests 08/18/16 05:27 Red Blood Count 3.61 L, Mean Corpuscular Volume 101.5 H, Mean Corpuscular Hemoglobin 32.7, Mean Corpuscular Hemoglobin Concent 32.2, Red Cell Distribution Width 18.1 H, Neutrophils (%) (Auto) 64.8, Lymphocytes (%) (Auto) 23.7 L, Monocytes (%) (Auto) 5.6 H, Eosinophils (%) (Auto) 3.8 H, Basophils (%) (Auto) 0.7, Neutrophils # (Auto) 3.3, Lymphocytes # (Auto) 1.3 L, Monocytes # ( Auto) 0.3, Eosinophils # (Auto) 0.2, Basophils # (Auto) 0.0 Microbiology Microbiology 08/16/16 Blood Culture - Preliminary, Resulted No growth after 24 hours . All specim... 08/16/16 Blood Culture - Preliminary, Resulted No growth after 24 hours . All specim... 08/17/16 Stool Occult Blood (LEYDI) - Final, Complete 08/16/16 Influenza Virus Type A Antigen - Final, Complete 08/16/16 Influenza Virus Type B Antigen - Final, Complete JOANNA HODGE PA-C Aug 18, 2016 11:10 Tyrel Hodge MD Aug 18, 2016 14:01
[2016-08-18 14:00] VITALS: BP 132/68
[2016-08-18] MEDS: FUROSEMIDE 20 MG TAB PO SCH (16:47)
[2016-08-18] MEDS: ASPIRIN 81 MG ENTERIC TAB PO SCH (21:12)
[2016-08-18] MEDS: MIRTAZAPINE 15 MG TAB PO SCH (21:12)
[2016-08-18] MEDS: PRAMIPEXOLE 0.25 MG TAB PO SCH (21:12)
[2016-08-18] MEDS: ENOXAPARIN 40 MG/0.4 ML SYRINGE (J1650) SC SCH (21:14)
--- NOTE | 2016-08-18 21:25 | ECHO ---
DATE OF PROCEDURE: 08/18/2016 REFERRING PHYSICIAN: Dr. Brian Millan INDICATION: Dyspnea. The patient measures 168 cm and weight 69 kg. DIMENSIONS: IVS: 1.2 LV: 4.2 LVPW: 1.2 LA: 4.3 Aorta: 2.9 FINDINGS: The study is of good technical quality. Left ventricle is of normal size and systolic function with estimated left ventricular ejection fraction (LVEF) 65-70%. Mild LVH is noted. The right ventricle is normal size and systolic function. Left atrium is mildly enlarged. Right atrium appears normal. There is a poorly visualized mobile density apparent in right atrium that seems to be attached to the lateral wall. It measures approximately 1.2 x 2.0 cm. This could represent thrombus, tumor, less likely vegetation. I cannot completely rule out that this is artifactual, but it seems unlikely. No pericardial effusion is noted. Aortic valve is sclerotic but has preserved mobility. There are also degenerative abnormalities of mitral valve but mobility of leaflet is preserved. Tricuspid valve appears normal. Pulmonic valve was not well visualized. No pericardial effusion is noted. Inferior vena cava is normal size. Aortic root is normal. Aortic arch and abdominal aorta were not seen. Doppler interrogation of aortic valve reveals no stenosis and trace insufficiency. There is also no mitral stenosis and trace mitral insufficiency. Mild tricuspid insufficiency seen. Calculated pulmonary artery pressure is in 30s corresponding to mild pulmonary hypertension. Pulmonic valve is functionally competent based on limited visualization. Mitral inflow pattern and tissue Doppler imaging of mitral annulus revealed grade 1 diastolic dysfunction. CONCLUSION: 1. Study is of acceptable technical quality. 2. Normal left ventricular (LV) size with mild left ventricular hypertrophy (LVH) and normal LV systolic function. Grade 1 diastolic dysfunction. 3. Aortic sclerosis with no stenosis and trace insufficiency. 4. Trace mitral insufficiency. 5. Mild tricuspid insufficiency with mild pulmonary hypertension. 6. Poorly visualized mobile round echodensity attached to lateral right atrial wall seen in the right atrium. This could represent thrombus, possibly tumor and less likely vegetation. Cannot completely rule out that this could be an artifact as well. COMMENT: Subacute bacterial endocarditis (SBE) prophylaxis is not recommended. If the patient would be considered potentially a surgical candidate, then a transesophageal echocardiogram will provide much better characterization of right atrial mass. [facility]
[2016-08-18 22:00] VITALS: BP 133/61
[2016-08-19 06:00] VITALS: BP 130/76
[2016-08-19 06:07] LABS: BASO % 0.6 % (0.0-1.0); EOS # 0.2 K/mm3 (0.0-0.50); EOS % 5.3 % (0.0-3.0); LARGE UNSTAINED CELL # 0.1 K/mm3 (0.0-0.4); LARGE UNSTAINED CELL % 1.7 % (0.0-4.0); LYMPH # 1.4 K/mm3 (1.5-4.5); MEAN CORPUSCULAR HEMOGLOBIN 32.5 pg (27.0-33.0); MEAN CORPUSCULAR HGB CONC 32.2 g/dl (32.0-36.5); MEAN CORPUSCULAR VOLUME 101.1 fl (80.0-96.0); MONO # 0.2 K/mm3 (0.0-0.8); MONO % 5.4 % (0.0-5.0); NEUTROPHILS # 2.2 K/mm3 (1.8-7.7); PLATELET COUNT, AUTOMATED 198 k/mm3 (150-450); RED CELL DISTRIBUTION WIDTH 17.6 % (11.5-14.5); WHITE BLOOD COUNT 4.2 K/mm3 (4.0-10.0)
[2016-08-19] MEDS: LEVOTHYROXINE 150MCG TABLET (0.15MG) PO SCH (06:25)
[2016-08-19 06:27] LABS: ALBUMIN 2.9 GM/DL (3.2-5.2); ALBUMIN/GLOBULIN RATIO 0.88 (1.00-1.93); BILIRUBIN,DIRECT 0.2 MG/DL (0.0-0.2); BILIRUBIN,TOTAL 0.7 MG/DL (0.2-1.0); CALCIUM LEVEL 8.9 MG/DL (8.8-10.2); CREATININE FOR GFR 1.03 MG/DL (0.55-1.02); GLOMERULAR FILTRATION RATE 53.8 (>32); POTASSIUM SERUM 3.8 MEQ/L (3.5-5.1); TOTAL PROTEIN 6.2 GM/DL (6.4-8.2)
[2016-08-19] MEDS: OMEPRAZOLE 20 MG CAP PO SCH (09:32)
[2016-08-19] MEDS: guaiFENesin ER 600 MG TAB PO SCH ×2 (09:32→21:22)
[2016-08-19] MEDS: HYDROXYCHLOROQUINE 200 MG TAB PO SCH (09:32)
[2016-08-19] MEDS: CALCIUM/VITAMIN D 500 MG TAB PO SCH (09:32)
[2016-08-19] MEDS: POTASSIUM CHLORIDE 10 MEQ SR TABLET PO SCH (09:32)
[2016-08-19] MEDS: predniSONE 5 MG TAB PO SCH (09:32)
[2016-08-19] MEDS: VITAMIN D 1,000 INTERNATIONAL UNITS TABLET PO SCH (09:32)
[2016-08-19] MEDS: ALLOPURINOL 100 MG TAB PO SCH (09:32)
[2016-08-19] MEDS: SENOKOT S TAB PO SCH ×3 (09:32→21:22)
[2016-08-19] MEDS: FUROSEMIDE 40 MG TAB PO SCH (09:33)
[2016-08-19] MEDS: LABETALOL 100 MG TAB PO SCH ×2 (09:47→21:23)
[2016-08-19] MEDS: predniSONE 1 MG TAB PO SCH (09:47)
--- NOTE | 2016-08-19 10:04 | IPNPDOC ---
Subjective Date Seen The patient was seen on 08/19/16. Subjective Chief Complaint/HPI The patient is a 86-year-old female admitted with a reason for visit of Elevated Lft's;Hypoxia;Weakness. Events since last encounter Feels very well, but still weak and does not feel ready to go home yet. Constitutional: Denies: Chills, Fever Pulmonary: Denies: Dyspnea, Cough Cardiovascular: Denies: Chest Pain, Palpitations, Orthopnea Gastrointestinal: Denies: Nausea, Vomiting, Abdominal Pain, Diarrhea, Constipation Objective Physical Examination General Exam: Positive: Alert, No Acute Distress ENT Exam: Positive: Mucous membr. moist/pink Neck Exam: Positive: Supple Chest Exam: Positive: Clear to auscultation, Normal air movement Heart Exam: Positive: Rate Normal, Normal S1, Normal S2 Abdomen Exam: Positive: Normal bowel sounds, Soft, Negative: Tenderness Extremity Exam: Negative: Edema Psych Exam: Positive: Mood NL Assessment /Plan Problems (1) Renal carcinoma Status: Chronic Response to Treatment: Stable Discussed With: Patient Problem Specific Plan: Monitor Clinically Problem Text: 08/19-- I spoke with Dr covarrubias 08/18, see yesterday's note. Failed HSE today 08/18 - Patient does not want to continue chemo due to side effects of severe fatigue. She will discuss this further with her oncologist. beginning of 05/2016 started pazopanib [address] Harris c increased fatigue , dose reduced to 600 qAM 3W prior s improved fatigue (2) Dyspnea on exertion Status: Acute Response to Treatment: Stable Discussed With: Patient Problem Specific Plan: Monitor Clinically Problem Text: 08/18 - no further ATKINS. O2 sats 97% RA CTA negative for PE. (3) Malaise and fatigue Status: Acute Response to Treatment: Stable Discussed With: Patient Problem Specific Plan: Monitor Clinically Problem Text: favor 2 acute hepatitis/deconditioning/tumor burden 08/16 BCX NG (4) Elevated liver function tests Status: Acute Problem Specific Plan: Monitor Clinically Problem Text: JFW: 08/18: PC Dr Covarrubias, case discussed, aware of ADR to Votrient 08/17/16 favor peaking at 294/309/243 2 pazopanib (last dose 600 08/16 AM) ( kinase inhibitor 2 metastatic RCC)-most common serious side effect Her LFTs are acutely elevated, although she has known metastatic lesions to her liver. INR remains nl at 1. Liver US pending today. CT suggests her liver lesion is smaller than previous. (5) CKD (chronic kidney disease) stage 3, GFR 30-59 ml/min Status: Chronic Response to Treatment: Stable Problem Text: baseline cr 1.2 Plan/VTE VTE Prophylaxis Ordered?: Yes Disposition Per PT - needs a couple of more days to acheive her strengthening goals before going home VS, I&O, 24H, Fishbone Vital Signs/I&O Vital Signs Date Time Temp Pulse Resp B/P (MAP) Pulse Ox O2 Delivery O2 Flow Rate FiO2 08/19/16 09:47 77 130/76 08/19/16 06:00 97.9 17 94 Room Air 08/17/16 06:00 1.0 I&O- Last 24 Hours up to 6 AM 08/19/16 06:00 Intake Total 1740 ml Output Total 1475 ml Balance 265 ml Laboratory Data 24H LABS Laboratory Tests 2 08/19/16 05:51: White Blood Count 4.2, Red Blood Count 3.62L, Hemoglobin 11.8L, Hematocrit 36.6 , Mean Corpuscular Volume 101.1H, Mean Corpuscular Hemoglobin 32.5, Mean Corpuscular Hemoglobin Concent 32.2, Red Cell Distribution Width 17.6H, Platelet Count 198, Neutrophils (%) (Auto) 53.0, Lymphocytes (%) (Auto) 34.0, Monocytes (%) (Auto) 5.4H, Eosinophils (%) (Auto) 5.3H, Basophils (%) (Auto) 0.6 , Neutrophils # (Auto) 2.2, Lymphocytes # (Auto) 1.4L, Monocytes # (Auto) 0.2, Eosinophils # (Auto) 0.2, Basophils # (Auto) 0.0, Large Unclassified Cells % 1.7 , Large Unclassified Cells # 0.1, Anion Gap 7L, Glomerular Filtration Rate 53.8 , Calcium Level 8.9, Aspartate Amino Transf (AST/SGOT) 223H, Alanine Aminotransferase (ALT/SGPT) 278H, Alkaline Phosphatase 245H, Total Bilirubin 0.7 , Direct Bilirubin 0.2, Total Protein 6.2L, Albumin 2.9L, Albumin/Globulin Ratio 0.88L CBC/BMP Laboratory Tests 08/19/16 05:51 Red Blood Count 3.62 L, Mean Corpuscular Volume 101.1 H, Mean Corpuscular Hemoglobin 32.5, Mean Corpuscular Hemoglobin Concent 32.2, Red Cell Distribution Width 17.6 H, Neutrophils (%) (Auto) 53.0, Lymphocytes (%) (Auto) 34.0, Monocytes (%) (Auto) 5.4 H, Eosinophils (%) (Auto) 5.3 H, Basophils (%) ( Auto) 0.6, Neutrophils # (Auto) 2.2, Lymphocytes # (Auto) 1.4 L, Monocytes # ( Auto) 0.2, Eosinophils # (Auto) 0.2, Basophils # (Auto) 0.0 Microbiology Microbiology 08/16/16 Blood Culture - Preliminary, Resulted No Growth after 48 hours. All Specime... 08/16/16 Blood Culture - Preliminary, Resulted No Growth after 48 hours. All Specime... 08/17/16 Stool Occult Blood (LEYDI) - Final, Complete 08/16/16 Influenza Virus Type A Antigen - Final, Complete 08/16/16 Influenza Virus Type B Antigen - Final, Complete JOANNA HODGE PA-C Aug 19, 2016 10:04 Tyrel Hodge MD Aug 19, 2016 11:25
[2016-08-19 14:00] VITALS: BP 150/70
[2016-08-19] MEDS: FUROSEMIDE 20 MG TAB PO SCH (18:40)
[2016-08-19] MEDS: MIRTAZAPINE 15 MG TAB PO SCH (21:22)
[2016-08-19] MEDS: ASPIRIN 81 MG ENTERIC TAB PO SCH (21:22)
[2016-08-19] MEDS: PRAMIPEXOLE 0.25 MG TAB PO SCH (21:22)
[2016-08-19] MEDS: ENOXAPARIN 40 MG/0.4 ML SYRINGE (J1650) SC SCH (21:23)
[2016-08-19 22:00] VITALS: BP 148/72
[2016-08-20 06:00] VITALS: BP 130/62
[2016-08-20] MEDS: LEVOTHYROXINE 150MCG TABLET (0.15MG) PO SCH (06:20)
--- NOTE | 2016-08-20 08:26 | IPNPDOC ---
Subjective Date Seen The patient was seen on 08/20/16. Subjective Chief Complaint/HPI The patient is a 86-year-old female admitted with a reason for visit of Elevated Lft's;Hypoxia;Weakness. Events since last encounter Patient devloped a hematoma on left hand from infiltrated IV. Hematoma now extends to proximal forearm. No swelling or pain or fever Constitutional: Denies: Chills, Fever Pulmonary: Denies: Dyspnea, Cough Cardiovascular: Denies: Chest Pain, Palpitations Gastrointestinal: Denies: Nausea, Vomiting, Abdominal Pain, Diarrhea, Constipation Objective Physical Examination General Exam: Positive: Alert, No Acute Distress ENT Exam: Positive: Mucous membr. moist/pink Neck Exam: Positive: Supple Chest Exam: Positive: Clear to auscultation, Normal air movement Heart Exam: Positive: Rate Normal, Normal S1, Normal S2 Abdomen Exam: Positive: Normal bowel sounds, Soft, Negative: Tenderness Extremity Exam: Negative: Edema Skin Exam: Positive: Other skin issue (left hand with large area of eccymosis extending to proximal forearm without swelling or tenderness. ) Psych Exam: Positive: Mood NL Assessment /Plan Problems (1) Renal carcinoma Status: Chronic Response to Treatment: Stable Discussed With: Patient Problem Specific Plan: Monitor Clinically Problem Text: 08/19-- I spoke with Dr covarrubias 08/18, see yesterday's note. Failed HSE today 08/18 - Patient does not want to continue chemo due to side effects of severe fatigue. She will discuss this further with her oncologist. beginning of 05/2016 started pazopanib [address] Harris c increased fatigue , dose reduced to 600 qAM 3W prior s improved fatigue (2) Dyspnea on exertion Status: Acute Response to Treatment: Stable Discussed With: Patient Problem Specific Plan: Monitor Clinically Problem Text: 08/18 - no further ATKINS. O2 sats 97% RA CTA negative for PE. (3) Malaise and fatigue Status: Acute Response to Treatment: Stable Discussed With: Patient Problem Specific Plan: Monitor Clinically Problem Text: favor 2 acute hepatitis/deconditioning/tumor burden 08/16 BCX NG (4) Elevated liver function tests Status: Acute Problem Specific Plan: Monitor Clinically Problem Text: JFW: 08/18: PC Dr Covarrubias, case discussed, aware of ADR to Votrient 08/17/16 favor peaking at 294/309/243 2 pazopanib (last dose 600 6/18 AM) ( kinase inhibitor 2 metastatic RCC)-most common serious side effect Her LFTs are acutely elevated, although she has known metastatic lesions to her liver. INR remains nl at 1. Liver US pending today. CT suggests her liver lesion is smaller than previous. (5) CKD (chronic kidney disease) stage 3, GFR 30-59 ml/min Status: Chronic Response to Treatment: Stable Problem Text: baseline cr 1.2 (6) Spontaneous hematoma of hand Problem Text: secondary to infiltration of Saline lock. No sign of infection. Continue warm compresses Plan/VTE VTE Prophylaxis Ordered?: Yes Disposition Await PT eval today. Hope to d/c home in am if safe. May need ST rehab VS, I&O, 24H, Fishbone Vital Signs/I&O Vital Signs Date Time Temp Pulse Resp B/P (MAP) Pulse Ox O2 Delivery O2 Flow Rate FiO2 08/20/16 06:00 97.9 79 20 130/62 (84) 97 Room Air 08/17/16 06:00 1.0 I&O- Last 24 Hours up to 6 AM 08/20/16 06:00 Intake Total 1670 ml Output Total 1700 ml Balance -30 ml Laboratory Data Microbiology Microbiology 08/16/16 Blood Culture - Preliminary, Resulted No Growth after 72 hours. All specime... 08/16/16 Blood Culture - Preliminary, Resulted No Growth after 72 hours. All specime... 08/17/16 Stool Occult Blood (LEYDI) - Final, Complete 08/16/16 Influenza Virus Type A Antigen - Final, Complete 08/16/16 Influenza Virus Type B Antigen - Final, Complete JOANNA HASSAN PA-C Aug 20, 2016 08:26
[2016-08-20] MEDS: guaiFENesin ER 600 MG TAB PO SCH ×2 (09:18→20:05)
[2016-08-20] MEDS: predniSONE 1 MG TAB PO SCH (09:18)
[2016-08-20] MEDS: ALLOPURINOL 100 MG TAB PO SCH (09:18)
[2016-08-20] MEDS: FUROSEMIDE 40 MG TAB PO SCH (09:19)
[2016-08-20] MEDS: SENOKOT S TAB PO SCH ×2 (09:19→20:05)
[2016-08-20] MEDS: predniSONE 5 MG TAB PO SCH (09:19)
[2016-08-20] MEDS: POTASSIUM CHLORIDE 10 MEQ SR TABLET PO SCH (09:19)
[2016-08-20] MEDS: CALCIUM/VITAMIN D 500 MG TAB PO SCH (09:19)
[2016-08-20] MEDS: OMEPRAZOLE 20 MG CAP PO SCH (09:19)
[2016-08-20] MEDS: VITAMIN D 1,000 INTERNATIONAL UNITS TABLET PO SCH (09:19)
[2016-08-20] MEDS: HYDROXYCHLOROQUINE 200 MG TAB PO SCH (09:26)
[2016-08-20] MEDS: LABETALOL 100 MG TAB PO SCH ×2 (09:26→20:05)
[2016-08-20 14:00] VITALS: BP 139/67
[2016-08-20] MEDS: FUROSEMIDE 20 MG TAB PO SCH (16:56)
[2016-08-20] MEDS: ASPIRIN 81 MG ENTERIC TAB PO SCH (20:04)
[2016-08-20] MEDS: PRAMIPEXOLE 0.25 MG TAB PO SCH (20:04)
[2016-08-20] MEDS: ENOXAPARIN 40 MG/0.4 ML SYRINGE (J1650) SC SCH (20:05)
[2016-08-20] MEDS: MIRTAZAPINE 15 MG TAB PO SCH (20:05)
[2016-08-20 22:00] VITALS: BP 127/62
[2016-08-21] MEDS: LEVOTHYROXINE 150MCG TABLET (0.15MG) PO SCH (05:31)
[2016-08-21 06:00] VITALS: BP 148/70
[2016-08-21] MEDS: FUROSEMIDE 40 MG TAB PO SCH (09:36)
[2016-08-21] MEDS: HYDROXYCHLOROQUINE 200 MG TAB PO SCH (09:36)
[2016-08-21] MEDS: guaiFENesin ER 600 MG TAB PO SCH ×2 (09:36→20:16)
[2016-08-21] MEDS: CALCIUM/VITAMIN D 500 MG TAB PO SCH (09:36)
[2016-08-21] MEDS: ALLOPURINOL 100 MG TAB PO SCH (09:36)
[2016-08-21] MEDS: VITAMIN D 1,000 INTERNATIONAL UNITS TABLET PO SCH (09:37)
[2016-08-21] MEDS: OMEPRAZOLE 20 MG CAP PO SCH (09:37)
[2016-08-21] MEDS: predniSONE 5 MG TAB PO SCH (09:37)
[2016-08-21] MEDS: predniSONE 1 MG TAB PO SCH (09:37)
[2016-08-21] MEDS: POTASSIUM CHLORIDE 10 MEQ SR TABLET PO SCH (09:37)
[2016-08-21] MEDS: SENOKOT S TAB PO SCH ×2 (09:38→20:15)
[2016-08-21] MEDS: LABETALOL 100 MG TAB PO SCH ×2 (09:38→20:17)
[2016-08-21 14:00] VITALS: BP_SYST 127; BP_SYST 154; BP_DIAS 58; BP_DIAS 90
[2016-08-21 14:06] LABS: ALBUMIN 3.1 GM/DL (3.2-5.2); ALBUMIN/GLOBULIN RATIO 0.91 (1.00-1.93); BILIRUBIN,TOTAL 0.9 MG/DL (0.2-1.0); CALCIUM LEVEL 9.4 MG/DL (8.8-10.2); CREATININE FOR GFR 1.02 MG/DL (0.55-1.02); GLOMERULAR FILTRATION RATE 54.4 (>32); POTASSIUM SERUM 3.7 MEQ/L (3.5-5.1); TOTAL PROTEIN 6.5 GM/DL (6.4-8.2)
[2016-08-21] MEDS: FUROSEMIDE 20 MG TAB PO SCH (17:11)
[2016-08-21] MEDS: ENOXAPARIN 40 MG/0.4 ML SYRINGE (J1650) SC SCH (20:15)
[2016-08-21] MEDS: ASPIRIN 81 MG ENTERIC TAB PO SCH (20:15)
[2016-08-21] MEDS: MIRTAZAPINE 15 MG TAB PO SCH (20:15)
[2016-08-21] MEDS: PRAMIPEXOLE 0.25 MG TAB PO SCH (20:16)
[2016-08-21 21:15] VITALS: BP 128/63
--- NOTE | 2016-08-22 00:16 | DSES ---
DATE OF ADMISSION: 08/16/2016 DATE OF DISCHARGE: BRIEF HISTORY AND PHYSICAL: The patient is an 86-year-old patient of Dr. Tesfaye who developed progressive weakness and shortness of breath with a mild cough and extreme fatigue. She has been following with her oncologist for enlarging renal masses and cervical node masses and had been started on chemotherapy with a medication called Votrient. Unfortunately, no records from oncology are within our office notes to confirm this. This information comes from the patient; however, she states that since starting the chemotherapy she has been getting progressively weaker and fatigued. Past medical history is significant for renal cell carcinoma with apparent recurrent progression following with Dr. 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 Pertinent labs on admission: Sodium 142, potassium 2.8, BUN 27, creatinine 1.24, glucose 89, white count 4.1, hemoglobin 12, platelets 215,000. Total bilirubin 0.8, direct bilirubin 0.3, AST 250, ALT 252, alkaline phosphatase 233. Prothrombin time was normal. CT of the chest shows no pulmonary embolism, partially visualized soft tissue mass in the left nephrectomy bed, low density mass lesions in the left lobe of the liver. Liver ultrasound shows 4.8 x 25.4 x 3.7 cm solid mass in the left lobe liver with heterogeneous appearance of blood flow within it and. A 1.5 x 1.2 cm hypoechoic mass in the pancreatic head, slightly hyperechoic to isoechoic mass midline interpolar region of the right kidney grossly enlarged. No stones, ascites or other significant findings. HOSPITAL COURSE: 1. The patient is admitted with elevated liver enzymes and generalized weakness with dyspnea on exertion. It was felt that her fatigue, dyspnea and elevated liver enzymes are related to her chemotherapy, as well as the liver lesion mass. She did receive a dose of intravenous (IV) steroids and was given oxygen and nebulized bronchodilators and her breathing is improved and is back to baseline and really has had no more respiratory distress. However, she still has some generalized fatigue, which she attributed to her oral chemotherapy. At this point, based on the renal cell carcinoma with masses on the liver, pancreas and apparently she has a cervical mass as well, she is not inclined to continue with chemotherapy as she feels that this is contributing to her fatigue. She would rather have a good quality of life and recognizing that her life may be shorter without treatment and for now she will need some further physical therapy to get a little bit stronger before she goes home. I have called oncology and spoke with Dr. Rene who is covering for Dr. Covarrubias in the afternoon on Wednesday and she will let Dr. Covarrubias know that Steffany is here that she is going to be getting some subacute rehabilitation and hopefully Dr. Covarrubias can stop in and discuss further her decision about chemotherapy and if there is any further recommendations on the part of oncology while she is here. We would appreciate it. Otherwise her liver enzymes remain elevated. We will recheck them again. This seems to have trended down now that she has been off of her oral chemotherapy. However, the elevation may in fact be related to the liver lesion that is present. 2. Chronic kidney disease. Renal function is stable at baseline. DISPOSITION: She is stable for [facility] facility ([facility]NF) status. Medications will be dictated at the time of her transfer to the long-term for subacute rehabilitation. DISCHARGE DIAGNOSES: 1. Dyspnea on exertion, resolved. 2. Renal cell carcinoma with metastasis. 3. Malaise and fatigue. 4. Elevated liver enzymes. 5. Chronic kidney disease. 6. Spontaneous hematoma of the hand from a saline lock, improving.
[2016-08-22 06:00] VITALS: BP 127/60
[2016-08-22] MEDS: LEVOTHYROXINE 150MCG TABLET (0.15MG) PO SCH (06:11)
[2016-08-22] MEDS: predniSONE 1 MG TAB PO SCH (09:36)
[2016-08-22] MEDS: HYDROXYCHLOROQUINE 200 MG TAB PO SCH (09:36)
[2016-08-22] MEDS: ALLOPURINOL 100 MG TAB PO SCH (09:36)
[2016-08-22] MEDS: OMEPRAZOLE 20 MG CAP PO SCH (09:36)
[2016-08-22] MEDS: SENOKOT S TAB PO SCH ×2 (09:36→20:34)
[2016-08-22] MEDS: LABETALOL 100 MG TAB PO SCH ×2 (09:36→20:34)
[2016-08-22] MEDS: FUROSEMIDE 40 MG TAB PO SCH (09:36)
[2016-08-22] MEDS: guaiFENesin ER 600 MG TAB PO SCH ×2 (09:37→20:34)
[2016-08-22] MEDS: predniSONE 5 MG TAB PO SCH (09:37)
[2016-08-22] MEDS: POTASSIUM CHLORIDE 10 MEQ SR TABLET PO SCH (09:37)
[2016-08-22] MEDS: VITAMIN D 1,000 INTERNATIONAL UNITS TABLET PO SCH (09:38)
[2016-08-22] MEDS: CALCIUM/VITAMIN D 500 MG TAB PO SCH (09:38)
[2016-08-22 14:00] VITALS: BP 137/64
[2016-08-22] MEDS: FUROSEMIDE 20 MG TAB PO SCH (16:48)
[2016-08-22] MEDS: ENOXAPARIN 40 MG/0.4 ML SYRINGE (J1650) SC SCH (20:33)
[2016-08-22] MEDS: PRAMIPEXOLE 0.25 MG TAB PO SCH (20:34)
[2016-08-22] MEDS: MIRTAZAPINE 15 MG TAB PO SCH (20:34)
[2016-08-22] MEDS: ASPIRIN 81 MG ENTERIC TAB PO SCH (20:34)
[2016-08-22 22:00] VITALS: BP 151/66
[2016-08-23 06:00] VITALS: BP 126/60
[2016-08-23] MEDS: LEVOTHYROXINE 150MCG TABLET (0.15MG) PO SCH (06:00)
[2016-08-23] MEDS: FUROSEMIDE 40 MG TAB PO SCH (09:08)
[2016-08-23] MEDS: LABETALOL 100 MG TAB PO SCH ×2 (09:08→20:31)
[2016-08-23] MEDS: predniSONE 5 MG TAB PO SCH (09:08)
[2016-08-23] MEDS: HYDROXYCHLOROQUINE 200 MG TAB PO SCH (09:08)
[2016-08-23] MEDS: guaiFENesin ER 600 MG TAB PO SCH ×2 (09:08→20:31)
[2016-08-23] MEDS: VITAMIN D 1,000 INTERNATIONAL UNITS TABLET PO SCH (09:08)
[2016-08-23] MEDS: OMEPRAZOLE 20 MG CAP PO SCH (09:08)
[2016-08-23] MEDS: CALCIUM/VITAMIN D 500 MG TAB PO SCH (09:08)
[2016-08-23] MEDS: predniSONE 1 MG TAB PO SCH (09:08)
[2016-08-23] MEDS: POTASSIUM CHLORIDE 10 MEQ SR TABLET PO SCH (09:09)
[2016-08-23] MEDS: ALLOPURINOL 100 MG TAB PO SCH (09:09)
[2016-08-23] MEDS: SENOKOT S TAB PO SCH ×2 (09:09→20:31)
[2016-08-23 14:00] VITALS: BP 140/64
[2016-08-23] MEDS: FUROSEMIDE 20 MG TAB PO SCH (17:38)
[2016-08-23] MEDS: ENOXAPARIN 40 MG/0.4 ML SYRINGE (J1650) SC SCH (20:30)
[2016-08-23] MEDS: PRAMIPEXOLE 0.25 MG TAB PO SCH (20:30)
[2016-08-23] MEDS: MIRTAZAPINE 15 MG TAB PO SCH (20:31)
[2016-08-23] MEDS: ASPIRIN 81 MG ENTERIC TAB PO SCH (20:31)
[2016-08-23 22:00] VITALS: BP 124/58
[2016-08-24] MEDS: LEVOTHYROXINE 150MCG TABLET (0.15MG) PO SCH (05:37)
[2016-08-24 06:00] VITALS: BP 125/58
[2016-08-24] MEDS: predniSONE 1 MG TAB PO SCH (08:59)
[2016-08-24] MEDS: HYDROXYCHLOROQUINE 200 MG TAB PO SCH (08:59)
[2016-08-24] MEDS: guaiFENesin ER 600 MG TAB PO SCH ×2 (08:59→21:45)
[2016-08-24] MEDS: VITAMIN D 1,000 INTERNATIONAL UNITS TABLET PO SCH (08:59)
[2016-08-24] MEDS: ALLOPURINOL 100 MG TAB PO SCH (09:00)
[2016-08-24] MEDS: LABETALOL 100 MG TAB PO SCH ×2 (09:00→21:44)
[2016-08-24] MEDS: CALCIUM/VITAMIN D 500 MG TAB PO SCH (09:00)
[2016-08-24] MEDS: SENOKOT S TAB PO SCH ×2 (09:00→21:44)
[2016-08-24] MEDS: FUROSEMIDE 40 MG TAB PO SCH (09:00)
[2016-08-24] MEDS: predniSONE 5 MG TAB PO SCH (09:00)
[2016-08-24] MEDS: OMEPRAZOLE 20 MG CAP PO SCH (09:00)
[2016-08-24] MEDS: POTASSIUM CHLORIDE 10 MEQ SR TABLET PO SCH (09:01)
[2016-08-24] MEDS: FUROSEMIDE 20 MG TAB PO SCH (17:13)
[2016-08-24] MEDS: ENOXAPARIN 40 MG/0.4 ML SYRINGE (J1650) SC SCH (21:45)
[2016-08-24] MEDS: MIRTAZAPINE 15 MG TAB PO SCH (21:45)
[2016-08-24] MEDS: ASPIRIN 81 MG ENTERIC TAB PO SCH (21:45)
[2016-08-24] MEDS: PRAMIPEXOLE 0.25 MG TAB PO SCH (21:47)
[2016-08-25 06:00] VITALS: BP 125/60
[2016-08-25] MEDS: LEVOTHYROXINE 150MCG TABLET (0.15MG) PO SCH (06:05)
[2016-08-25] MEDS: VITAMIN D 1,000 INTERNATIONAL UNITS TABLET PO SCH (09:07)
[2016-08-25] MEDS: SENOKOT S TAB PO SCH (09:07)
[2016-08-25] MEDS: CALCIUM/VITAMIN D 500 MG TAB PO SCH (09:07)
[2016-08-25 09:08] VITALS: BP 145/67
[2016-08-25] MEDS: POTASSIUM CHLORIDE 10 MEQ SR TABLET PO SCH (09:08)
[2016-08-25] MEDS: predniSONE 5 MG TAB PO SCH (09:08)
[2016-08-25] MEDS: LABETALOL 100 MG TAB PO SCH (09:08)
[2016-08-25] MEDS: FUROSEMIDE 40 MG TAB PO SCH (09:08)
[2016-08-25] MEDS: OMEPRAZOLE 20 MG CAP PO SCH (09:09)
[2016-08-25] MEDS: ALLOPURINOL 100 MG TAB PO SCH (09:09)
[2016-08-25] MEDS: predniSONE 1 MG TAB PO SCH (09:09)
[2016-08-25] MEDS: guaiFENesin ER 600 MG TAB PO SCH (09:09)
[2016-08-25] MEDS: HYDROXYCHLOROQUINE 200 MG TAB PO SCH (09:14)
--- NOTE | 2016-08-25 15:16 | DSES ---
DATE OF ADMISSION: 08/16/2016 DATE OF DISCHARGE: 08/25/2017 ADDENDUM TO DISCHARGE SUMMARY. PRIMARY CARE PHYSICIAN: Dr. Brian Millan. HISTORY: Her disposition has remained unchanged since her alf facility (SNF) was dictated on 08/21/2016. Her discharge diagnoses remain unchanged. Her discharge medications include: - albuterol sulfate inhaled two puffs every 4 hours as needed for shortness of breath - allopurinol 100 mg daily - aspirin 81 mg daily - calcium with D one tablet daily - vitamin D 1000 units daily - progesterone 1 dose vaginally before bed - Senna one tablet twice daily - furosemide 40 mg in the morning, 20 mg in the evening - Mucinex 600 mg twice a day - hydroxychloroquine sulfate 200 mg daily - labetalol 200 mg twice a day - levothyroxine 150 mcg daily - Myrbetriq 25 mg by mouth before bed - mirtazapine 50 mg by mouth before bed - multivitamin one tablet daily - omeprazole 20 mg daily - potassium chloride 10 mEq daily - pramipexole 0.25 mg before bed - prednisone 8 mg daily, 5 mg and 3 mg tablets - PreserVision by mouth daily DISCHARGE PLAN: Follow up with Dr. Millan in one week. Activity should be as tolerated. Diet should be no added salt.
--- NOTE | 2016-08-25 22:32 | CR ---
DATE OF CONSULTATION: 08/25/2016 REFERRING PHYSICIAN: Sadia Farmer MD REASON FOR CONSULTATION: Metastatic renal cell carcinoma. HISTORY OF PRESENT ILLNESS: Steffany White is an 86-year-old female, who was admitted to [facility] on 08/17/2016 for shortness of breath. She does have a history of stage IV renal cell carcinoma, currently on Pazopanib. Pazopanib was started three months ago. On evaluation in the emergency room, she was noted to be anemic. Hematology/oncology was consulted to discuss plan of care, goals of care and prognosis. Today, the patient is lying in bed comfortably. She has family at her bedside. She stated her shortness of breath has improved. She also endorsed some fatigue, which has been ongoing and worsened after she started Pazopanib. She denies any abdominal pain, nausea or vomiting. She has a nonproductive cough. PAST MEDICAL HISTORY: 1. Renal cell carcinoma, status post left nephrectomy 23 years ago, now return metastatic disease with metastasis in the left subclavian muscle and CT scan revealing possible metastasis of the liver, as well as pancreas. 2. Diastolic heart failure. 3. Lupus. 4. Hypertension. 5. Allergic rhinitis. 6. Hypothyroidism. 7. MGUS. PAST SURGICAL HISTORY: 1. Left nephrectomy as above. 2. Hysterectomy. 3. Tonsillectomy. 4. Appendectomy. 5. Thyroidectomy for goiter 6. Carpal tunnel surgery MEDICATIONS AT HOME INCLUDE: - pazopanib - Lasix - potassium chloride - hydroxychloroquine - levothyroxine - labetalol - aspirin - multivitamins - calcium - vitamin D - docusate - albuterol inhaler - prednisone - omeprazole - allopurinol - Myrbetriq - mirtazapine ALLERGIES: CODEINE AND SEPTRA. SOCIAL HISTORY: No tobacco or alcohol use. She currently lives by herself, but she has a very good family support; her children and grandchildren. FAMILY HISTORY: Unremarkable. PHYSICAL EXAMINATION: Blood pressure is 125/58, pulse is 80. He is a afebrile. GENERAL: She is laying in bed. She appears comfortable in no acute distress, elderly female. HEENT: No pallor. Anicteric sclerae. Moist mucous membranes. Pharynx clear HEART: Regular rate and rhythm. Normal S1, S2. LUNGS: Clear bilaterally. No wheeze, rhonchi or rales. ABDOMEN: Soft. No hepatosplenomegaly or masses. EXTREMITIES: No clubbing, cyanosis or edema. SKIN: She has multiple ecchymosis on her arm, otherwise no rashes. LABORATORY STUDIES: A restaging CT scan was done while in the hospital of the abdomen and pelvis on 08/17/2016 and reviewed and new hepatic lesions suspicious for metastatic disease or primary malignancy and also multiple bronchitic lesions measuring up to 4.1 cm. IMPRESSION: An 86-year-old female with metastatic renal cell carcinoma currently on Pazopanib. DISCUSSION AND RECOMMENDATION: I discussed with the patient in detail along with her family regarding the progressive disease. She is on Pazopanib, which is one of the better tolerated TKIs for renal cell carcinoma. Given the progression and continued fatigue, I recommend that she discontinue this medication. We discussed progression in detail. She did tell me that she is currently DO NOT RESUSCITATE. We discussed options moving forward including hospice care. She knows that the risk of continuing medication now outweighs the benefit as she continues to have progressive disease on Pazopanib and given her advanced age and functional status, I am loath to continue to treat her with cytotoxic chemotherapy. She will be discharged to a [facility] facility, and she will revisit afterwards.
== END 2016-08-25 11:32 | DRG 948 ==
LOC: EDBD 10:13 → M ED 12:49 → M ED INP 17:49 → M MSPAV 21:18
PROVIDERS: ADMIT Family Medicine; ATTEND Family Medicine
DX: R53.83 Other fatigue (principal); I50.32 Chronic diastolic (congestive) heart failure; C64.1 Malignant neoplasm of right kidney, except renal pelvis; C78.7 Secondary malignant neoplasm of liver and intrahepatic bile duct; B17.9 Acute viral hepatitis, unspecified; C79.89 Secondary malignant neoplasm of other specified sites; C78.89 Secondary malignant neoplasm of other digestive organs; I13.0 Hypertensive heart and chronic kidney disease with heart failure and stage 1 through stage 4 chronic kidney disease, or unspecified chronic kidney disease; M32.9 Systemic lupus erythematosus, unspecified; R06.02 Shortness of breath; R53.81 Other malaise; Z66 Do not resuscitate; R09.02 Hypoxemia; E55.9 Vitamin D deficiency, unspecified; M10.9 Gout, unspecified; J30.9 Allergic rhinitis, unspecified; N18.3 Chronic kidney disease, stage 3 (moderate); E89.0 Postprocedural hypothyroidism; T45.1X5A Adverse effect of antineoplastic and immunosuppressive drugs, initial encounter; K59.00 Constipation, unspecified; R63.4 Abnormal weight loss; D47.2 Monoclonal gammopathy; Z79.82 Long term (current) use of aspirin; Z79.52 Long term (current) use of systemic steroids; Z79.899 Other long term (current) drug therapy; Z88.5 Allergy status to narcotic agent; Z88.8 Allergy status to other drugs, medicaments and biological substances; Z90.5 Acquired absence of kidney

== ENCOUNTER → 2016-08-27 | Outpatient (REF) | payer MEDICARE ==
[~2016-08-27] MED LIST changes: +ALBU17IN INH; +ALLO100T PO; -ATOR40TA PO; +ATOR40TA75 PO; +ESTR62CR PV; +LEVO750T13 PO; +MIRT15TA3 PO; +MUCI600T37 PO; +MYRB25TA PO; +OMEP20CA3 PO; +PRAM0.252 PO; +PRED10TA2 PO; +PRED1TABL PO; +PRESCAP6 PO; +SENN8.6C PO; +TRAM50TA2 PO; +VOTRIENT PO
[2016-08-27 14:28] LABS: MEAN CORPUSCULAR HEMOGLOBIN 33.6 pg (27.0-33.0); MEAN CORPUSCULAR HGB CONC 32.7 g/dl (32.0-36.5); MEAN CORPUSCULAR VOLUME 102.8 fl (80.0-96.0); RED CELL DISTRIBUTION WIDTH 18.4 % (11.5-14.5); WHITE BLOOD COUNT 4.6 K/mm3 (4.0-10.0)
[2016-08-27 14:56] LABS: CALCIUM LEVEL 8.6 MG/DL (8.8-10.2); CREATININE FOR GFR 1.1 MG/DL (0.55-1.02); GLOMERULAR FILTRATION RATE 49.9 (>32); POTASSIUM SERUM 4.1 MEQ/L (3.5-5.1)
== END ==
PROVIDERS: ATTEND Family Medicine
DX: C64.9 Malignant neoplasm of unspecified kidney, except renal pelvis (principal)

== ENCOUNTER → 2016-08-31 | Outpatient (REF) ==
--- NOTE | 2016-08-31 17:59 | REP ---
Clinical: Pain. Technique: Single view of the left shoulder. Findings: Fracture involving the scapula/acromion process is suggested and requires correlation. Clavicle is intact. Humeral head appears intact. Impression: Incomplete evaluation suggesting fracture of the scapula/acromion process. Signed by Deep Gambino MD 08/31/2016 05:50 P
== END ==
PROVIDERS: ATTEND Family Medicine
DX: M25.512 Pain in left shoulder (principal)

== ENCOUNTER → 2016-09-07 | Outpatient (REF) ==
[2016-09-07 15:18] LABS: FREE T4 1.75 NG/DL (0.76-1.46)
== END ==
PROVIDERS: ATTEND Family Medicine
DX: E03.9 Hypothyroidism, unspecified (principal)

== ENCOUNTER → 2016-09-30 | Outpatient (CLI) | payer MEDICARE ==
[2016-09-30 17:28] LABS: ALBUMIN 3.4 GM/DL (3.2-5.2); ALBUMIN/GLOBULIN RATIO 1.21 (1.00-1.93); BILIRUBIN,TOTAL 0.5 MG/DL (0.2-1.0); CALCIUM LEVEL 9.4 MG/DL (8.8-10.2); CREATININE FOR GFR 1.37 MG/DL (0.55-1.02); FREE T4 1.64 NG/DL (0.76-1.46); GLOMERULAR FILTRATION RATE 38.7 (>32); MAGNESIUM LEVEL 2.1 MG/DL (1.8-2.4); POTASSIUM SERUM 4.2 MEQ/L (3.5-5.1); TOTAL PROTEIN 6.2 GM/DL (6.4-8.2)
[2016-09-30 18:46] LABS: BASO % 0.7 % (0.0-1.0); EOS # 0.2 K/mm3 (0.0-0.50); LARGE UNSTAINED CELL # 0.1 K/mm3 (0.0-0.4); LYMPH # 0.6 K/mm3 (1.5-4.5); LYMPH % 8.5 % (24.0-44.0); MEAN CORPUSCULAR HEMOGLOBIN 32.9 pg (27.0-33.0); MEAN CORPUSCULAR HGB CONC 31.8 g/dl (32.0-36.5); MEAN CORPUSCULAR VOLUME 103.4 fl (80.0-96.0); MONO # 0.3 K/mm3 (0.0-0.8); MONO % 4.7 % (0.0-5.0); NEUTROPHILS # 5.1 K/mm3 (1.8-7.7); NEUTROPHILS % 82.1 % (36.0-66.0); PLATELET COUNT, AUTOMATED 219 k/mm3 (150-450); RED CELL DISTRIBUTION WIDTH 15.2 % (11.5-14.5); WHITE BLOOD COUNT 6.2 K/mm3 (4.0-10.0)
== END ==
LOC: M WUC 11:42
PROVIDERS: ATTEND Family Medicine
DX: E03.9 Hypothyroidism, unspecified (principal); E55.9 Vitamin D deficiency, unspecified; I10 Essential (primary) hypertension

== ENCOUNTER → 2016-10-08 | Outpatient (REF) | payer MEDICARE ==
[2016-10-08 14:51] LABS: REASON FOR REVIEW COMPREHENSIVE REVIEW
[2016-10-08 15:28] LABS: CORTISOL AM 17.4 UG/DL (4.3-22.4); FREE T4 1.72 NG/DL (0.76-1.46); MAGNESIUM LEVEL 1.9 MG/DL (1.8-2.4); PHOSPHORUS LEVEL 4.1 MG/DL (2.5-4.9)
== END ==
LOC: M LAB REF 13:39
PROVIDERS: ATTEND Internal Medicine Medical Oncology
DX: C64.9 Malignant neoplasm of unspecified kidney, except renal pelvis (principal); Z79.899 Other long term (current) drug therapy

== ENCOUNTER → 2016-10-13 | Outpatient (CLI) | payer MEDICARE ==
[~2016-10-13] MED LIST changes: +ACETAMINOPHEN 325 MG TAB As Ordered ONE; +ACETAMINOPHEN TAB 650MG DOSE (2X325MG) PO SCH; +diphenhydrAMINE 25 MG CAP As Ordered ONE; +diphenhydrAMINE 25 MG CAP PO SCH
== END | disposition home or self-care (01) ==
LOC: M OPP 10:20
PROVIDERS: ATTEND Internal Medicine Medical Oncology
DX: C64.9 Malignant neoplasm of unspecified kidney, except renal pelvis (principal); Z88.5 Allergy status to narcotic agent
CPT/HCPCS: 36415; 36430; 86850; 86900; 86901; 86920; P9016

== ENCOUNTER → 2016-11-04 | Outpatient (REF) | payer MEDICARE ==
[~2016-11-04] MED LIST changes: -ACETAMINOPHEN 325 MG TAB As Ordered ONE; -ACETAMINOPHEN TAB 650MG DOSE (2X325MG) PO SCH; -diphenhydrAMINE 25 MG CAP As Ordered ONE; -diphenhydrAMINE 25 MG CAP PO SCH
== END ==
LOC: M LAB REF 13:45
PROVIDERS: ATTEND Physician Assistant
DX: R82.90 Unspecified abnormal findings in urine (principal)

== ENCOUNTER → 2016-11-12 | Outpatient (CLI) | payer MEDICARE ==
--- NOTE | 2016-11-13 09:43 | RADONC ---
RADIATION ONCOLOGY CONSULTATION NOTE DATE: 11/12/2016 CHART NUMBER: [id number]. DIAGNOSIS: Renal cell cancer. STAGE IV. ECOG PERFORMANCE STATUS: 0 CONSULTATION NOTE: Ms. White is a very pleasant 86-year-old white female with the diagnosis of metastatic renal cell carcinoma who is presenting to us today for consideration of palliative radiation therapy for a painful left sided neck mass. HISTORY OF PRESENT ILLNESS: The patient's history dates back to 1991 when she underwent a left nephrectomy for a renal cell carcinoma. She has done well basically for the last 25 years or so. Recently she has been developing increased swelling in her left neck. A CT scan of the neck done on 04/06/2016 showed an enlargement of the left sternocleidomastoid muscle. An MRI was done on 09/25/2016 of the left shoulder which showed no injury to the shoulder itself. The patient however has a large clinical mass in the left neck. The patient was offered systemic therapy but had decided she does not wish to undergo therapy considering her advanced age. She reports the quality of life is more important of the quantity. PAST MEDICAL HISTORY: The patient's past medical history is positive for hypertension, cataracts and arthritis. She has had thyroid surgery in the past. She had a hysterectomy in the past as well. ALLERGIES: The patient is allergic to CODEINE. SOCIAL HISTORY: The patient does not smoke cigarettes nor abuse alcohol. FAMILY HISTORY: The patient's family history is positive for a father with skin cancer. REVIEW OF SYSTEMS: The patient's review of systems is positive for physical limitations secondary to old age. She also has some decreased energy and some hearing loss. She has occasional shortness of breath. She reports that her neck mass is causing some difficulties with swallowing. She denies nausea, vomiting, fevers, chills, night sweats, diplopia, headaches, anxiety or depression, visual disturbances, chest pain, urinary or bowel difficulties, bone pain or neurological problems. PHYSICAL EXAMINATION: The patient is a well-developed, well-nourished 86-year-old white female in no acute distress. HEENT: Exam is normocephalic, atraumatic. Extraocular movements are intact. There is a large left-sided neck mass running from the jaw all the way down to the supraclavicular region. There is no other palpable cervical, supraclavicular, infraclavicular or axillary lymphadenopathy present. ASSESSMENT: Clearly the patient is a candidate for palliative radiation therapy and I have so informed her. I have discussed with the patient in detail the potential benefits as well as possible acute and chronic sequelae of external beam radiation therapy. We discussed logistics of treatment planning, simulation and subsequent fractionated daily radiation treatments. I discussed with her in detail as well that we may be treating her larynx region which may cause some discomfort upon swallowing. We discussed different fractionation schedules and the tolerance issues each would have. I have tentatively scheduled the patient for the next available simulation slot and radiation treatments will begin subsequently. Thank you for allowing us to participate in the care of this very pleasant woman. If I could be of any further assistance or provide you with any information, please feel free to contact me at anytime. As always, with warm regards.
== END ==
LOC: M ONCR 13:48
PROVIDERS: ATTEND Radiology Radiation Oncology
DX: C64.9 Malignant neoplasm of unspecified kidney, except renal pelvis (principal)

== ENCOUNTER 2016-11-17 10:22 | Outpatient (RCR) | payer MEDICARE ==
--- NOTE | 2016-11-18 06:41 | RADONC ---
RADIATION ONCOLOGY SIMULATION NOTE DATE: 11/17/2016 CHART NUMBER: [id number]. SIMULATION NOTE: Ms. White was taken to the CT scan today for CT simulation of her head and neck field. CT was accomplished without difficulty or discomfort. Radiation treatment planning is underway and radiation treatments will begin subsequently. An immobilization device was created without difficulty or discomfort. It will be used throughout the course of treatment. I was physically present throughout the course of CT simulation.
== END 2016-11-28 ==
LOC: M ONCR 10:22
PROVIDERS: ATTEND Radiology Radiation Oncology
DX: C64.2 Malignant neoplasm of left kidney, except renal pelvis (principal); C77.0 Secondary and unspecified malignant neoplasm of lymph nodes of head, face and neck

== ENCOUNTER → 2016-11-17 | Outpatient (CLI) | payer MEDICARE | LOC: M RAD 10:16 | PROVIDERS: ATTEND Radiology Radiation Oncology | DX: C64.2 Malignant neoplasm of left kidney, except renal pelvis (principal); C77.0 Secondary and unspecified malignant neoplasm of lymph nodes of head, face and neck ==

== ENCOUNTER → 2016-12-07 | Outpatient (CLI) | payer MEDICARE | LOC: M WUC 14:06 | PROVIDERS: ATTEND Internal Medicine Endocrinology, Diabetes & Metabolism | DX: M81.0 Age-related osteoporosis without current pathological fracture (principal) ==

== ENCOUNTER 2016-12-30 11:09 | Outpatient (RCR) | payer MEDICARE ==
--- NOTE | 2017-01-06 07:40 | RADONC ---
RADIATION ONCOLOGY PROGRESS NOTE DATE: 01/04/2017 CHART NUMBER: [id number] Ms. White is presently at a dose of 6075 cGy to her left neck and is tolerating treatments quite well at this point with no difficulties related to her radiation therapy other than some tenderness of the skin in the treated field. She is having no other issues and no difficulty swallowing. The patient's review of systems is positive for some tenderness of the skin but is otherwise noncontributory. She denies nausea, vomiting, fevers, chills, night sweats, diplopia, headaches, anxiety or depression, anorexia, weight loss, visual disturbances, chest pain, urinary or bowel difficulties, bone pain, or neurological problems. PHYSICAL EXAMINATION: The patient's skin is in good condition with no evidence of moist or dry desquamation. The remainder of her physical exam remains unchanged. Ms. White is tolerating treatments quite well and radiation will continue as scheduled.
--- NOTE | 2017-01-07 10:55 | RADONC ---
RADIATION ONCOLOGY TREATMENT SUMMARY DATE: 01/05/2017 CHART NUMBER: [id number] DIAGNOSIS: Renal cell cancer. STAGE: IV ECOG PERFORMANCE STATUS: 0 TREATMENT SUMMARY: Ms. White is a very pleasant 86-year-old white female with the diagnosis of metastatic renal cell carcinoma who presented to us for consideration of palliative radiation therapy to a left neck mass. We treated the patient to her left neck for a total dose of 6300 cGy delivered in 28 fractions of 225 cGy each over 40 elapsed days from 11/26/2016 through 01/05/2017. The patient was treated on the linear accelerator utilizing a 6 MV photon beam via IMRT/IGRT. Ms. White tolerated her treatments quite well and was able to complete therapy as prescribed without interruption. I have scheduled the patient to see me again in 1 month for further followup. She will also continue to be followed by her other physicians as well. Thank you for allowing us to participate in the care of this very pleasant woman. If I could be of any further assistance or provide you with any information, please feel free to contact me at any time. cc: MD Brian Zaragoza MD
== END 2017-01-28 ==
LOC: M ONCR 11:09
PROVIDERS: ATTEND Radiology Radiation Oncology
DX: C64.2 Malignant neoplasm of left kidney, except renal pelvis (principal); C77.0 Secondary and unspecified malignant neoplasm of lymph nodes of head, face and neck

== ENCOUNTER → 2017-02-03 | Outpatient (CLI) | payer MEDICARE ==
--- NOTE | 2017-02-04 12:00 | RADONC ---
RADIATION ONCOLOGY FOLLOWUP NOTE DATE: 02/03/2017 CHART NUMBER: [id number] DIAGNOSIS: Renal cell cancer. STAGE: IV. ECOG PERFORMANCE STATUS: 0. FOLLOWUP NOTE: Ms. White is a very pleasant, 86-year-old white female with the diagnosis of metastatic renal cell carcinoma who is presenting to us today for routine followup visit 1 month post completion of palliative radiation therapy to a left neck mass. The patient presents today reporting that she is doing quite well with no complaints at this time related to her radiation therapy or disease. She has no pain whatsoever. She is having no discomfort or other problems from her neck mass. She is having no other problems. REVIEW OF SYSTEMS: The patient's review of systems is noncontributory. Denies nausea, vomiting, fevers, chills, night sweats, diplopia, headaches, anxiety or depression, anorexia, weight loss, visual disturbances, chest pain, urinary or bowel difficulties, bone pain, or neurological problems. PHYSICAL EXAMINATION: The patient is a well-developed, well-nourished, white female in no acute distress. HEENT: Exam is normocephalic, atraumatic. Extraocular movements are intact. There continues to be a 5.5 cm left cervical neck mass. The right cervical chain and the remainder of her lymph nodes are free of masses. Her lungs are clear to auscultation and percussion. Heart has a regular rate and rhythm. Her abdomen is benign with no splenomegaly, masses or tenderness. ASSESSMENT: The patient is clinically stable at this point. She continues her close followup with Dr. Covarrubias. I have set her up for a routine followup in our office in three months' time. She will also continue to be followed by her other physicians. cc: MD Brian Zaragoza MD
== END ==
LOC: M ONCR 14:20
PROVIDERS: ATTEND Radiology Radiation Oncology
DX: C64.2 Malignant neoplasm of left kidney, except renal pelvis (principal); C77.0 Secondary and unspecified malignant neoplasm of lymph nodes of head, face and neck

== ENCOUNTER → 2017-02-12 | Outpatient (CLI) | payer MEDICARE ==
[2017-02-12 13:06] LABS: BASO # 0.1 10^3/uL (0.0-0.2); BASO % 0.8 % (0.0-1.0); EOS # 0.3 10^3/uL (0.0-0.50); EOS % 3.2 % (0.0-3.0); IMMATURE GRANULOCYTE % 1.4 % (0-0); LYMPH # 0.5 10^3/uL (1.5-4.5); MEAN CORPUSCULAR HEMOGLOBIN 30.8 pg (27.0-33.0); MEAN CORPUSCULAR HGB CONC 31.7 g/dl (32.0-36.5); MEAN CORPUSCULAR VOLUME 97.2 fl (80.0-96.0); MONO # 0.3 10^3/uL (0.0-0.8); MONO % 3.9 % (0.0-5.0); NEUTROPHILS # 7.3 10^3/uL (1.8-7.7); NEUTROPHILS % 84.7 % (36.0-66.0); PLATELET COUNT, AUTOMATED 223 10^3/uL (150-450); RED CELL DISTRIBUTION WIDTH 16.1 % (11.5-14.5); WHITE BLOOD COUNT 8.6 10^3/uL (4.0-10.0)
[2017-02-12 13:47] LABS: ALBUMIN 3.5 GM/DL (3.2-5.2); ALBUMIN/GLOBULIN RATIO 1.09 (1.00-1.93); BILIRUBIN,TOTAL 0.3 MG/DL (0.2-1.0); CALCIUM LEVEL 8.2 MG/DL (8.8-10.2); CREATININE FOR GFR 1.17 MG/DL (0.55-1.02); FREE T4 1.66 NG/DL (0.76-1.46); GLOMERULAR FILTRATION RATE 46.4 (>32); PERCENT SATURATION 21.7 % (13.2-45.0); POTASSIUM SERUM 4.7 MEQ/L (3.5-5.1); TOTAL PROTEIN 6.7 GM/DL (6.4-8.2); URIC ACID 7.7 MG/DL (2.6-6.0)
== END ==
LOC: M WUC 10:31
PROVIDERS: ATTEND Family Medicine
DX: D47.2 Monoclonal gammopathy (principal); M10.9 Gout, unspecified; E78.5 Hyperlipidemia, unspecified; D50.9 Iron deficiency anemia, unspecified

== ENCOUNTER → 2017-02-24 | Outpatient (REF) | payer MEDICARE | LOC: M SFHCPLAZ 09:23 | DX: R30.0 Dysuria (principal) | CPT/HCPCS: 87086 ==

== ENCOUNTER 2017-03-23 15:41 | Outpatient (CLI) | payer MEDICARE ==
[2017-03-25 15:07] LABS: CREATININE FOR GFR 1.16 MG/DL (0.55-1.02); GLOMERULAR FILTRATION RATE 46.8 (>32)
[2017-03-25 15:07] LABS: BLOOD UREA NITROGEN 29 MG/DL (7-18)
== END 2017-03-25 ==
LOC: M ONCR 15:41
DX: C64.9 Malignant neoplasm of unspecified kidney, except renal pelvis (principal); Z88.5 Allergy status to narcotic agent; Z88.2 Allergy status to sulfonamides
CPT/HCPCS: 82565

== ENCOUNTER → 2017-03-29 | Outpatient (CLI) | payer MEDICARE | LOC: M ONCR 13:20 | DX: C77.0 Secondary and unspecified malignant neoplasm of lymph nodes of head, face and neck (principal); C64.2 Malignant neoplasm of left kidney, except renal pelvis ==

== ENCOUNTER → 2017-03-29 | Outpatient (CLI) | payer MEDICARE ==
[~2017-03-29] MED LIST changes: -ACET65TA; -ALBU17IN INH; -ALBU17IN2 INH; -ALLO100T PO; -ASPI1TAB PO; -ATEN25TA; -ATEN25TA PO; -ATOR40TA75 PO; -AZUL500T3; -BABY81CH; -CALC600T7 PO; -ESTR62CR PV; -EYECAP PO; -FLAG500T; -FURO20TA2 PO; -HYDR200T3 PO; +ISOVUE-370 76% 100ML VIAL (Q9967) As Ordered; -LABE10TAB PO; -LASI40TA; -LEVO125T6; -LEVO150T42 PO; -LEVO750T13 PO; -LISI10TA4; -MAGN500T2; -MILKSUS; -MIRT15TA3 PO; -MUCI600T37 PO; -MYRB25TA PO; -NEXI40CA PO; -NORV5TAB; -NYSTATIN ORAL; -OMEP20CA3 PO; -POTA10TA16 PO; -PRAM0.123 PO; -PRAM0.252 PO; -PRED10PA PO; -PRED10TA2; -PRED10TA2 PO; -PRED1TABL PO; -PRED20TA; -PRED5TA PO; -PRESCAP6 PO; -ROBISYP PO; -SENN-23 PO; -SENN8.6C PO; -TRAM50TA2 PO; -TRAZ50TA; -TYLE325T5 PO; -VITA100066 PO; -VITMTA PO; -VOTRIENT PO; -ZITH500T PO
== END ==
LOC: M RAD 12:29
DX: C64.2 Malignant neoplasm of left kidney, except renal pelvis (principal); N18.3 Chronic kidney disease, stage 3 (moderate); K59.09 Other constipation; E78.5 Hyperlipidemia, unspecified; E55.9 Vitamin D deficiency, unspecified; D63.8 Anemia in other chronic diseases classified elsewhere; I10 Essential (primary) hypertension; M32.10 Systemic lupus erythematosus, organ or system involvement unspecified; E03.9 Hypothyroidism, unspecified; I50.32 Chronic diastolic (congestive) heart failure; M75.01 Adhesive capsulitis of right shoulder
CPT/HCPCS: Q9967

== ENCOUNTER → 2017-04-22 | Outpatient (CLI) | payer MEDICARE | LOC: M SMT 10:20 | DX: M25.512 Pain in left shoulder (principal) | CPT/HCPCS: 73020 ==

== ENCOUNTER → 2017-06-01 | Outpatient (CLI) | payer MEDICARE ==
[2017-06-01 14:40] LABS: HEMATOCRIT 37.8 % (36.0-47.0); HEMOGLOBIN 12.2 g/dl (12.0-15.5); MEAN CORPUSCULAR HEMOGLOBIN 31.7 pg (27.0-33.0); MEAN CORPUSCULAR HGB CONC 32.3 g/dl (32.0-36.5); MEAN CORPUSCULAR VOLUME 98.2 fl (80.0-96.0); PLATELET COUNT, AUTOMATED 190 10^3/uL (150-450); RED BLOOD COUNT 3.85 10^6/uL (4.00-5.40); RED CELL DISTRIBUTION WIDTH 14.4 % (11.5-14.5); RETIC HEMOGLOBIN EQUIVALENT 35.3 pg (24-36); RETICULOCYTE # 49.7 10^9/L (17-77); RETICULOCYTE % 1.3 % (0.5-1.5); WHITE BLOOD COUNT 6.6 10^3/uL (4.0-10.0)
[2017-06-01 14:59] LABS: POS COUNT POS FLAG; POSITIVE MORPH POS FLAG
[2017-06-01 15:00] LABS: ADD MANUAL DIFFER YES; DIFF SLIDE NUMBER 292
[2017-06-01 15:11] LABS: ALBUMIN 3.5 GM/DL (3.2-5.2); ALBUMIN/GLOBULIN RATIO 0.95 (1.00-1.93); ALKALINE PHOSPHATASE 97 U/L (45-117); ALT/SGPT 13 U/L (12-78); ANION GAP 7 MEQ/L (8-16); AST/SGOT 13 U/L (7-37); BILIRUBIN,TOTAL 0.4 MG/DL (0.2-1.0); BLOOD UREA NITROGEN 39 MG/DL (7-18); CALCIUM LEVEL 9.9 MG/DL (8.8-10.2); CARBON DIOXIDE LEVEL 29 MEQ/L (21-32); CHLORIDE LEVEL 100 MEQ/L (98-107); CREATININE FOR GFR 1.67 MG/DL (0.55-1.30); FREE T4 1.59 NG/DL (0.76-1.46); GLOMERULAR FILTRATION RATE 30.8 (>32); GLUCOSE, FASTING 129 MG/DL (70-100); POTASSIUM SERUM 4.7 MEQ/L (3.5-5.1); SODIUM LEVEL 136 MEQ/L (136-145); THYROID STIMULATING HORMONE 0.791 uIU/ML (0.358-3.740); TOTAL PROTEIN 7.2 GM/DL (6.4-8.2); URIC ACID 10.4 MG/DL (2.6-6.0)
[2017-06-01 15:12] LABS: PTH INTACT 57.9 PG/ML (18.5-88.0); TOTAL 25(OH) VITAMIN D 26.7 NG/ML (30.0-100.0)
[2017-06-01 15:14] LABS: BANDS 4 % (< 11); LYMPHOCYTES 3 % (16-52); METAMYELOCYTES 2 % (0-0); MONOCYTES 4 % (0-8); MYELOCYTES 1 % (0-0); NEUTROPHILS 86 % (35-75)
[2017-06-01 15:15] LABS: PLATELET ESTIMATE NORMAL (NORMAL)
== END ==
LOC: M LAB 13:42
DX: M85.80 Other specified disorders of bone density and structure, unspecified site (principal); I70.201 Unspecified atherosclerosis of native arteries of extremities, right leg; M20.11 Hallux valgus (acquired), right foot; M32.9 Systemic lupus erythematosus, unspecified; D47.2 Monoclonal gammopathy; E03.9 Hypothyroidism, unspecified; M10.9 Gout, unspecified; L03.031 Cellulitis of right toe
CPT/HCPCS: 73630

== ENCOUNTER → 2017-06-15 | Outpatient (REF) | payer MEDICARE ==
[2017-06-15 15:43] LABS: CALCIUM LEVEL 9.5 MG/DL (8.8-10.2)
[2017-06-15 16:18] LABS: TOTAL 25(OH) VITAMIN D 21.7 NG/ML (30.0-100.0)
== END ==
LOC: M LABDRAW1 10:50
DX: M81.0 Age-related osteoporosis without current pathological fracture (principal); E55.9 Vitamin D deficiency, unspecified
CPT/HCPCS: 82310

== ENCOUNTER → 2017-07-01 | Outpatient (REF) | payer MEDICARE | LOC: M SFHCPLAZ 15:06 | DX: R05 Cough (principal) | CPT/HCPCS: 87205 ==

== ENCOUNTER → 2017-08-25 | Outpatient (REF) | payer MEDICARE ==
[2017-08-25 13:08] LABS: APPEARANCE, URINE TURBID (CLEAR); BACTERIA, URINE AUTO 3+ (NEGATIVE); BILIRUBIN, URINE AUTO NEGATIVE (NEGATIVE); BLOOD, URINE BLOOD 2+ (NEGATIVE); COLOR, URINE YELLOW (YELLOW); GLUCOSE, URINE (UA) AUTO NEGATIVE (NEGATIVE); KETONE, URINE AUTO NEGATIVE (NEGATIVE); LEUKOCYTE ESTERASE, URINE AUTO 3+ (NEGATIVE); NITRITE, URINE AUTO POSITIVE (NEGATIVE); PROTEIN, URINE AUTO 2+ mg/dL (NEGATIVE); RBC, URINE AUTO 58 /HPF (0-3); SPECIFIC GRAVITY URINE AUTO 1.013 (1.002-1.035); SQUAMOUS EPITHELIAL CELL UR AU 1 /HPF (0-6); TRANSITIONAL EPITHELIAL AUTO 1 /HPF; UROBILINOGEN, URINE AUTO 0.2 mg/dL (0.0-2.0); WBC, URINE AUTO TNTC /HPF (0-3)
== END ==
LOC: M LAB REF 12:37
DX: N39.0 Urinary tract infection, site not specified (principal)
CPT/HCPCS: 81001